=== PATIENT | female | born 1970 | race Caucasian/White ===

== ENCOUNTER → 2017-07-26 | Outpatient (CLI) | payer OTHER ==
[~2017-07-26] MED LIST: BUPR150T5 PO; BUPR75TA5 PO; COUM1TAB17 PO; ELIQ5TAB PO; EXCETAB80 PO; LOVE0.4I2 SC; MAXA10TA15 PO; YASM3TAB2 PO
--- NOTE | 2017-07-26 09:13 | REPMRS ---
Patient History The patient states she has not had a clinical breast exam in over a year. Family history of prostate cancer in father at age 45. Digital Mammo Screening Bilat: July 26, 2017 - Exam #: [id number] Bilateral CC and MLO view(s) were taken. Technologist: Kathya Torres, Technologist Prior study comparison: May 04, 2016, left breast digital mammo diagnostic unilateral performed at [facility]. April 26, 2016, bilateral digital mammo screening bilat performed at [facility]. FINDINGS: The breast tissue is heterogeneously dense. This may lower the sensitivity of mammography. There has been no change in the appearance of the mammogram from the prior studies. There is a moderate amount of residual fibroglandular tissue which is fairly symmetric. There is no interval development of dominant mass, areas of architectural distortion, or clustered microcalcification typical of malignancy. ASSESSMENT: BI-RADS/ACR category 1 mammogram. Negative. Recommendation Routine screening mammogram in 1 year (for women over age 40). This mammogram was interpreted with the aid of an FDA-approved computer-aided dectection system. Electronically Signed By: Valdo Wilcox MD 07/26/17 [id number]
== END ==
LOC: M RAD 07:45
PROVIDERS: ATTEND Internal Medicine
DX: Z12.31 Encounter for screening mammogram for malignant neoplasm of breast (principal); R92.8 Other abnormal and inconclusive findings on diagnostic imaging of breast

== ENCOUNTER 2018-01-08 03:20 | Emergency (ER) | payer OTHER ==
[2018-01-08] MEDS: IPRATROPIUM 0.5MG/ALBUTEROL 2.5MG INH SOL UD 3ML (DUONEB)(J7620) NEB ×3 (03:26→03:27)
[2018-01-08] MEDS: predniSONE 20 MG TAB PO (04:39)
[2018-01-08] MEDS: ALBUTEROL 90 MCG/ACT 8GM HFA INHALER INH (04:39)
== END 2018-01-08 04:43 | disposition home or self-care (01) ==
LOC: M ED 03:20
DX: J20.9 Acute bronchitis, unspecified (principal); Z79.899 Other long term (current) drug therapy
CPT/HCPCS: 71046

== ENCOUNTER → 2018-03-21 | Outpatient (CLI) | payer OTHER ==
[~2018-03-21] MED LIST changes: -BUPR150T5 PO; -BUPR75TA5 PO; -COUM1TAB17 PO; -ELIQ5TAB PO; -EXCETAB80 PO; -LOVE0.4I2 SC; -MAXA10TA15 PO; +METHACHOLINE KIT (J7674) INH; -YASM3TAB2 PO
== END ==
LOC: M CARPUL 14:32
DX: R05 Cough (principal)

== ENCOUNTER → 2018-09-22 | Outpatient (CLI) | payer OTHER ==
[~2018-09-22] MED LIST changes: +BUPR150T5 PO; +BUPR75TA5 PO; +COUM1TAB17 PO; +ELIQ5TAB PO; +EXCETAB80 PO; +IBUP80TA PO; +LOVE0.4I2 SC; +MAXA10TA15 PO; -METHACHOLINE KIT (J7674) INH; +PRED20TA PO; +SING10TA32 PO; +YASM3TAB2 PO
--- NOTE | 2018-09-22 10:00 | REPMRS ---
Patient History The patient states she has not had a clinical breast exam in over a year. Family history of prostate cancer at age 45 in father. 2D ONLY. Digital Mammo Screening Bilat: September 22, 2018 - Exam #: [id number] Bilateral CC and MLO view(s) were taken. Technologist: Ema Manzanares, Technologist Prior study comparison: July 26, 2017, bilateral digital mammo screening bilat performed at [facility]. May 04, 2016, left breast digital mammo diagnostic unilateral performed at [facility]. FINDINGS: The breast tissue is heterogeneously dense. This may lower the sensitivity of mammography. There has been no change in the appearance of the mammogram from the prior studies. There is a moderate amount of residual fibroglandular tissue which is fairly symmetric. There is no interval development of dominant mass, areas of architectural distortion, or clustered microcalcification typical of malignancy. Assessment: BI-RADS/ACR category 1 mammogram. Negative Mammogram. Recommendation Routine screening mammogram in 1 year (for women over age 40). This mammogram was interpreted with the aid of an FDA-approved computer-aided dectection system. Electronically Signed By: Valdo Wilcox MD 09/22/18 1000
== END ==
LOC: M RAD 09:16
PROVIDERS: ATTEND Family Medicine
DX: Z12.31 Encounter for screening mammogram for malignant neoplasm of breast (principal); Z80.42 Family history of malignant neoplasm of prostate

== ENCOUNTER 2018-11-01 16:56 | Emergency (ER) | payer OTHER ==
[~2018-11-01] VITALS: Ht 172.7 cm; Wt 69.4 kg
[2018-11-01] MEDS ORDERED: ADVA115A (17:13)
--- NOTE | 2018-11-01 17:56 | REP ---
Clinical: Bilateral lower extremity swelling . Technique: Wilcox scale and color Doppler evaluation using linear high frequency transducer. Findings: Ultrasound examination of the right and left lower extremity deep venous structures from the common femoral vein to the popliteal vein demonstrates normal compressibility flow and wave patterns in response to respiration and augmentation. There is no evidence for deep venous thrombosis. Impression: No evidence for deep venous thrombosis. Electronically Signed by Rakan Butler MD 11/01/2018 05:47 P
[2018-11-01 19:07] LABS: BASO # 0.1 10^3/uL (0.0-0.2); BASO % 1.3 % (0.0-1.0); EOS # 1.1 10^3/uL (0.0-0.50); EOS % 15.8 % (0.0-3.0); HEMATOCRIT 34.1 % (36.0-47.0); HEMOGLOBIN 11.5 g/dl (12.0-15.5); LYMPH # 2.4 10^3/uL (1.5-4.5); LYMPH % 33.7 % (24.0-44.0); MEAN CORPUSCULAR HGB CONC 33.7 g/dl (32.0-36.5); MONO # 0.5 10^3/uL (0.0-0.8); MONO % 6.9 % (0.0-5.0); NEUTROPHILS % 42.2 % (36.0-66.0); PLATELET COUNT, AUTOMATED 257 10^3/uL (150-450); RED BLOOD COUNT 3.83 10^6/uL (4.00-5.40)
--- NOTE | 2018-11-01 19:24 | REP ---
Clinical: Edema. Technique: PA and lateral. Comparison: 01/08/2018. Findings: Mediastinum and cardiac silhouette are normal. Cephalization and mild pulmonary vascular congestion cannot be excluded. No focal consolidation. No effusion. No pneumothorax. Skeletal structures are intact. Impression: Prominent pulmonary vasculature with mild cephalization suggests pulmonary vascular congestion. Differential diagnosis may include bronchitis. No focal consolidation. Electronically Signed by Rakan Butelr MD 11/01/2018 07:15 P
[2018-11-01 19:35] LABS: ALBUMIN 3.5 GM/DL (3.2-5.2); ALT/SGPT 61 U/L (12-78); APPEARANCE, URINE CLEAR (CLEAR); BACTERIA, URINE AUTO 1+ (NEGATIVE); BILIRUBIN, URINE AUTO NEGATIVE (NEGATIVE); BILIRUBIN,DIRECT 0.1 MG/DL (0.0-0.2); BILIRUBIN,TOTAL 0.5 MG/DL (0.2-1.0); BLOOD UREA NITROGEN 18 MG/DL (7-18); BLOOD, URINE BLOOD 2+ (NEGATIVE); CALCIUM LEVEL 8.7 MG/DL (8.5-10.1); CARBON DIOXIDE LEVEL 23 MEQ/L (21-32); CHLORIDE LEVEL 107 MEQ/L (98-107); COLOR, URINE STRAW (YELLOW); CREATININE FOR GFR 0.72 MG/DL (0.55-1.30); GLOMERULAR FILTRATION RATE > 60.0 (>58); GLUCOSE, FASTING 77 MG/DL (70-100); GLUCOSE, URINE (UA) AUTO NEGATIVE (NEGATIVE); KETONE, URINE AUTO 1+ mg/dL (NEGATIVE); LEUKOCYTE ESTERASE, URINE AUTO 1+ (NEGATIVE); MUCUS, URINE SMALL (NEGATIVE); NITRITE, URINE AUTO NEGATIVE (NEGATIVE); NT-PRO BNP 94 PG/ML (<125); POTASSIUM SERUM 3.7 MEQ/L (3.5-5.1); PROTEIN, URINE AUTO NEGATIVE (NEGATIVE); RBC, URINE AUTO 1 /HPF (0-3); SODIUM LEVEL 139 MEQ/L (136-145); SQUAMOUS EPITHELIAL CELL UR AU 1 /HPF (0-6); TOTAL PROTEIN 6.5 GM/DL (6.4-8.2); UROBILINOGEN, URINE AUTO 0.2 mg/dL (0.0-2.0); WBC, URINE AUTO 1 /HPF (0-3)
[2018-11-01 19:54] VITALS: BP 122/70
--- NOTE | 2018-11-02 10:21 | ECGEPIP ---
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 Order Number: [id number] Reading MD: Tess Guzman Measurements Intervals Gardner Rate: 66 P: 22 UT: 164 QRS: 37 QRSD: 93 T: 16 QT: 408 QTc: 429 Interpretive Statements SINUS RHYTHM POSSIBLE RIGHT VENTRICULAR CONDUCTION DELAY NSTTW ABNORMALITY SIMILAR 02/13/16 Electronically Signed On 11-02-2018 10:21:17 EDT by Tess Guzman
== END 2018-11-01 20:51 | disposition home or self-care (01) ==
LOC: M ED 16:56
DX: R60.0 Localized edema (principal); Z86.718 Personal history of other venous thrombosis and embolism

== ENCOUNTER → 2019-02-21 | Outpatient (CLI) | payer OTHER ==
[~2019-02-21] MED LIST changes: +ADVA115A
[2019-02-21 13:19] LABS: BASO % 0.7 % (0.0-1.0); EOS # 0.1 10^3/uL (0.0-0.50); EOS % 1.6 % (0.0-3.0); HEMATOCRIT 37.6 % (36.0-47.0); HEMOGLOBIN 12.7 g/dl (12.0-15.5); LYMPH # 2.2 10^3/uL (1.5-4.5); LYMPH % 49.4 % (24.0-44.0); MEAN CORPUSCULAR HGB CONC 33.8 g/dl (32.0-36.5); MEAN CORPUSCULAR VOLUME 85.8 fl (80.0-96.0); MONO # 0.3 10^3/uL (0.0-0.8); MONO % 6.7 % (0.0-5.0); NEUTROPHILS # 1.9 10^3/uL (1.8-7.7); NEUTROPHILS % 41.6 % (36.0-66.0); PLATELET COUNT, AUTOMATED 259 10^3/uL (150-450); RED BLOOD COUNT 4.38 10^6/uL (4.00-5.40); WHITE BLOOD COUNT 4.5 10^3/uL (4.0-10.0)
[2019-02-21 14:03] LABS: IMMUNOGLOBULIN A 74.5 MG/DL (70-400); IMMUNOGLOBULIN E 86.4 IU/ML (<100); IMMUNOGLOBULIN G 1020 MG/DL (681-1648)
[2019-02-21 14:36] LABS: RUBELLA IgG QUALITATIVE IMMUNE (IMMUNE)
[2019-03-01 00:06] LABS: ANTI TETANUS ANTIBODY 1.03 IU/mL (<0.10); IMMUNOGLOBULIN D <1.34 mg/dL (<14.11); STREP PNEUMO TYPE 1 0.4 ug/mL (>1.3); STREP PNEUMO TYPE 12F <0.1 ug/mL (>1.3); STREP PNEUMO TYPE 14 4.9 ug/mL (>1.3); STREP PNEUMO TYPE 18C <0.1 ug/mL (>1.3); STREP PNEUMO TYPE 19A 0.2 ug/mL (>1.3); STREP PNEUMO TYPE 19F 0.8 ug/mL (>1.3); STREP PNEUMO TYPE 23F <0.1 ug/mL (>1.3); STREP PNEUMO TYPE 4 <0.1 ug/mL (>1.3); STREP PNEUMO TYPE 6B <0.1 ug/mL (>1.3); STREP PNEUMO TYPE 7F 0.1 ug/mL (>1.3); STREP PNEUMO TYPE 8 <0.1 ug/mL (>1.3); STREP PNEUMO TYPE 9N 0.1 ug/mL (>1.3); STREP PNEUMO TYPE 9V <0.1 ug/mL (>1.3)
== END ==
LOC: M SMT 11:29
PROVIDERS: ATTEND Allergy & Immunology Allergy
DX: J45.30 Mild persistent asthma, uncomplicated (principal); J31.0 Chronic rhinitis; D84.9 Immunodeficiency, unspecified

== ENCOUNTER → 2019-04-12 | Outpatient (CLI) | payer OTHER ==
--- NOTE | 2019-04-12 17:03 | REP ---
Maxillofacial CT study without contrast: History: Chronic pansinusitis. Comparison is made with images from brain CT study December 19, 2015. CT findings: There is an air-fluid level in the left maxillary sinus. Small mucous retention cysts are seen along the anterior wall of the left maxillary sinus. There is mucosal thickening and there are small subcentimeter mucous retention cysts in the right maxillary sinus. There is partial opacification of several ethmoid air cells bilaterally. Minimal mucosal thickening and mucus is visible in the sphenoid sinus air cells bilaterally. There is partial opacification of the left frontal sinus. Mastoid aeration is normal and symmetrical. The bony nasal septum is in the midline. Nasal turbinate soft tissues are normal. The ostiomeatal complexes are patent bilaterally. No intraorbital or intracranial abnormality is appreciated. Impression: Polysinusitis changes as above. Electronically Signed by Ángel Ann MD 04/13/2019 08:40 A
== END ==
LOC: M RAD 16:10
PROVIDERS: ATTEND Otolaryngology
DX: J32.4 Chronic pansinusitis (principal)

== ENCOUNTER 2019-05-28 08:49 | Day surgery (SDC) | payer OTHER ==
[~2019-05-28] VITALS: Ht 170.2 cm; Wt 67.8 kg
[~2019-05-28 08:49] MED LIST changes: +CLIN-30 PO; +LR 1,000 ML IV ONE; +PRED5TA PO
[2019-05-28] MEDS ORDERED: METHYLENE BLUE 0.5% (5MG/ML) 10 ML AMP (PROVAYBLUE)(Q9968 PER 1MG) As Ordered ONE (10:55)
[2019-05-28] MEDS ORDERED: EPINEPHrine 1MG/ML INJ 30ML MD-VIAL As Ordered ONE (10:55)
[2019-05-28] MEDS ORDERED: LIDOCAINE W/EPINEPHRINE 1% 20ML VIAL As Ordered ONE (10:55)
[2019-05-28] MEDS ORDERED: MIDAZOLAM INJ 2 MG/2 ML VIAL (J2250) As Ordered ONE (11:15)
[2019-05-28] MEDS ORDERED: dexameTHASONE 4 MG/ML 1ML VIAL (J1100) As Ordered ONE (11:15)
[2019-05-28] MEDS ORDERED: LIDOCAINE 2% INJ 100 MG/5 ML SDV (FOR ANES.) As Ordered ONE (11:15)
[2019-05-28] MEDS ORDERED: ONDANSETRON 4MG/2ML VIAL (J2405) As Ordered ONE ×2 (11:15→12:59)
[2019-05-28] MEDS ORDERED: PROPOFOL 200 MG/20 ML VIAL As Ordered ONE (11:15)
[2019-05-28] MEDS ORDERED: ROCURONIUM BROMIDE 50 MG/5 ML VIAL As Ordered ONE (11:15)
[2019-05-28] MEDS ORDERED: SUGAMMADEX SODIUM 500 MG/5 ML VIAL (BRIDION) As Ordered ONE (11:15)
[2019-05-28] MEDS ORDERED: fentaNYL 250 MCG/5 ML INJECTION (J3010) As Ordered ONE (11:15)
[2019-05-28] MEDS ORDERED: ONDANSETRON 4MG/2ML VIAL (J2405) IV PRN (13:00)
[2019-05-28] MEDS ORDERED: PERCOCET 5MG/325MG TAB PO PRN (13:00)
[2019-05-28] MEDS ORDERED: LR 1,000 ML IV SCH ×2 (13:00→14:01)
[2019-05-28] MEDS ORDERED: fentaNYL 100 MCG/2 ML INJECTION (J3010) IV PRN (13:00)
[2019-05-28] MEDS ORDERED: METOCLOPRAMIDE INJ 10MG/2ML VIAL (J2765) As Ordered ONE (13:32)
[2019-05-28] MEDS ORDERED: METOCLOPRAMIDE INJ 10MG/2ML VIAL (J2765) IV ONE (14:00)
[2019-05-28] MEDS ORDERED: ACETAMINOPH W/CODEINE #3 TAB UD PO PRN (14:01)
[2019-05-28 17:00] VITALS: BP 121/68
--- NOTE | 2019-05-28 22:32 | RO ---
DATE OF PROCEDURE: 05/28/2019 PREPROCEDURE DIAGNOSIS: Chronic rhinosinusitis. POSTPROCEDURE DIAGNOSIS: Chronic rhinosinusitis. PROCEDURE: Bilateral antrostomies, ethmoidectomies, nasofrontal sinusotomy, and right sphenoidotomy. 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 DESCRIPTION OF PROCEDURE: Under general anesthesia with the patient intubated, the patient was draped in the usual manner. I used the navigation system during the procedure. It was calibrated. I used pledgets of adrenaline 1:1000 infiltrated with lidocaine and epinephrine. I started first on the right side. I removed the lateral portion of the middle turbinate and then the uncinate process. I opened the ethmoid air cells anterior to posterior and then the sphenoid on that side. I opened the nasofrontal area. Tissue was removed. I removed all the septa from inside the sinus. The same procedure was performed on the opposite side, only I never went into the sphenoid sinus. The patient tolerated the procedure well. 30 mL estimated blood loss. I put in a Propel stent on both sides. Patient extubated and transferred to the recovery room in excellent condition.
== END 2019-05-28 17:05 | disposition home or self-care (01) ==
LOC: M SDC 08:49
PROVIDERS: ATTEND Otolaryngology
DX: J32.9 Chronic sinusitis, unspecified (principal); J45.909 Unspecified asthma, uncomplicated; G43.909 Migraine, unspecified, not intractable, without status migrainosus; Z79.51 Long term (current) use of inhaled steroids; Z86.718 Personal history of other venous thrombosis and embolism; Z86.711 Personal history of pulmonary embolism; Z86.59 Personal history of other mental and behavioral disorders
CPT/HCPCS: 31255; 31257; 31276; 88305; C2625; J1100; J2250; J2405; J2765; J3010; Q9968

== ENCOUNTER → 2019-10-09 | Outpatient (REF) | payer OTHER ==
[~2019-10-09] MED LIST changes: -LR 1,000 ML IV ONE
== END ==
LOC: M LAB REF 16:34
PROVIDERS: ATTEND Otolaryngology
DX: J32.4 Chronic pansinusitis (principal); J30.9 Allergic rhinitis, unspecified

== ENCOUNTER → 2019-10-16 | Outpatient (CLI) | payer OTHER ==
--- NOTE | 2019-10-16 17:25 | REPVR ---
PROCEDURE INFORMATION: Exam: CT Maxillofacial Without Contrast, Sinus Exam date and time: 10/16/2019 4:56 PM Age: 49 years old Clinical indication: Sinusitis; Chronic; Additional info: Chronic pansinusitis TECHNIQUE: Imaging protocol: CT Maxillofacial without contrast. Focus on the sinuses. Radiation optimization: All CT scans at this facility use at least one of these dose optimization techniques: automated exposure control; mA and/or kV adjustment per patient size (includes targeted exams where dose is matched to clinical indication); or iterative reconstruction. COMPARISON: CT BRAIN LAB SINUSES 04/12/2019 4:27 PM FINDINGS: Frontal sinuses: Prominent mucosal disease is seen in the left frontal air cell which has progressed in comparison to the prior study. Ethmoid air cells: Many of the ethmoid air cells have been resected. There is minimal mucoperiosteal thickening. Sphenoid sinuses: The right sphenoid air cell has prominent mucoperiosteal thickening which has progressed in comparison the prior study. Maxillary sinuses: There is minimal mucoperiosteal thickening in the left maxillary antrum with interim resolution of the previously noted air-fluid level on the 04/12/2019 CT. There are bilateral antral windows. Orbits: Orbits are normal. Globes are unremarkable. Auditory system: The middle ear cavities and mastoid air cells are clear. Nasal cavity/Septum: The nasal septum is midline. Nasal cavity is patent. Soft tissues: Unremarkable. Bones/joints: Post paranasal sinus surgery. IMPRESSION: There has been progression of mucoperiosteal thickening in the left frontal sinus and right sphenoid air cell in comparison the prior study with interim resolution of the air-fluid level previously seen in the left maxillary antrum. There are now antral windows as well as resection of multiple ethmoid air cells. Electronically signed by: Maylin Varner On 10/16/2019 17:25:39 PM
== END ==
LOC: M RAD 16:47
PROVIDERS: ATTEND Otolaryngology
DX: J32.4 Chronic pansinusitis (principal)

== ENCOUNTER 2019-11-13 11:41 | Inpatient (IN) | payer OTHER ==
[~2019-11-13] VITALS: Ht 172.7 cm; Wt 64.7 kg
[~2019-11-13 11:41] MED LIST changes: -BACT800T5 PO; -CEFD1CAP8 PO; -PROAAER10 INH; -TOBRSUS8 OS
[2019-11-13 12:23] VITALS: BP 111/66
[2019-11-13 13:14] LABS: HEMATOCRIT 39.1 % (36.0-47.0); MEAN CORPUSCULAR HEMOGLOBIN 29.9 pg (27.0-33.0); MEAN CORPUSCULAR HGB CONC 33.2 g/dl (32.0-36.5); MEAN CORPUSCULAR VOLUME 89.9 fl (80.0-96.0); PLATELET COUNT, AUTOMATED 210 10^3/uL (150-450); RED BLOOD COUNT 4.35 10^6/uL (4.00-5.40); WHITE BLOOD COUNT 4.9 10^3/uL (4.0-10.0)
[2019-11-13] MEDS ORDERED: ALBUTEROL 90 MCG/ACT 8GM HFA INHALER INH PRN (13:45)
[2019-11-13] MEDS ORDERED: PROAAER10 INH (13:54)
[2019-11-13] MEDS ORDERED: TOBRSUS8 OS (13:54)
[2019-11-13] MEDS ORDERED: BACT800T5 PO (13:54)
[2019-11-13] MEDS ORDERED: CEFD1CAP8 PO (13:54)
[2019-11-13 13:55] LABS: ALBUMIN 4.1 GM/DL (3.2-5.2); ALT/SGPT 59 U/L (12-78); BILIRUBIN,TOTAL 0.5 MG/DL (0.2-1.0); BLOOD UREA NITROGEN 15 MG/DL (7-18); CALCIUM LEVEL 9.4 MG/DL (8.5-10.1); CARBON DIOXIDE LEVEL 29 MEQ/L (21-32); CHLORIDE LEVEL 111 MEQ/L (98-107); CREATININE FOR GFR 1.04 MG/DL (0.55-1.30); GLOMERULAR FILTRATION RATE > 60.0 (>58); GLUCOSE, FASTING 75 MG/DL (70-100); SODIUM LEVEL 142 MEQ/L (136-145)
[2019-11-13] MEDS: PIPERACILLIN/TAZOBACTAM SOD 3.375 GM in D5W MINI-BAG PLUS 50 ML IV SCH ×2 (14:17→22:01)
[2019-11-13] MEDS: ENOXAPARIN 40 MG/0.4 ML SYRINGE (J1650) SC SCH (14:17)
--- NOTE | 2019-11-13 14:54 | PHACANCOPD ---
PHARMACY VANCOMYCIN DOSING Pt Demographics Demographics Patient Age:49 , Weight:64.700 , Gender: female Adjusted Body Weight Events Past 24 Hours Events Past 24 Hours: YES: Other Vancomycin Vancomycin indication: PERIORBITAL CELLULITIS Vancomycin Target Ranges: 15-20 mcg/ml Vancomycin Load Y/N: Yes Load Dose Date Time Vancomycin Load Dose: 1500MG Date: 11/13/19 Time: 1600 Vancomycin Dose Date: 11/13/19. Current Vancomycin Dose: 1000MG Q12H Intermittent Dosing?: No Labs Creatinine Clearance Date:11/13/19. Creatinine Clearance: 67 Assessment and Plan Maintaining Current Dose?: Yes Reason for dose change: No Dose Change Pharmacist Note Pharmacist Note Date: 11/13/19. Pharmacist note: Patient admitted for periorbital cellulitis. Target trough of 15-20. Patient does not have a history of vancomycin usage here at [facility]. I gave the patient an IV vancomycin load of 1500mg @1600. I then s cheduled a maintenance dosage of 1G q12h to start at 2200. I scheduled a trough for tomorrow at 2100 before the 4th dose. I will continue to monitor this patient and adjust dosage as needed. DEJA DELACRUZ PHARMACY Nov 13, 2019 14:54
[2019-11-13] MEDS ORDERED: VANCOMYCIN HCL 1,000 MG, VIAL MATE ADAPTER 1 EACH in D5W 250 ML IV ONE (16:00)
[2019-11-13] MEDS ORDERED: VANCOMYCIN HCL 500 MG in D5W MINI-BAG PLUS 100 ML IV ONE (17:00)
[2019-11-13] MEDS: ACETAMINOPHEN 500 MG TAB PO PRN (17:07)
--- NOTE | 2019-11-13 17:37 | HPEPDOC ---
General Date of Admission Nov 13, 2019 at 11:50 Date of Service: Nov 13, 2019 Chief Complaint The patient is a 49-year-old female admitted with a reason for visit of Pansinusitis. Source: Patient, RN/MD History of Present Illness 49 year old female with asthma and chronic sinusitis involving the ethmoid, frontal, sphenoidal and maxillary sinuses following with ENT status post surgery ( Ethmoid bullectomy, Uncinectomy) in may 2019 continues to have acute episodes of sinusitis with headache, sinus congestion, swelling around the eyes, discharge from the eyes going on for the past 2 years. Another acute sinusitis episode started 3 weeks ago. She was given 10 days of augmentin by Dr Whatley which she finished about a week ago however she continued t have symptoms so called ENT yesterday and was started o cefdinir and bactrim by Dr Whatley after discussion with ID. She started taking those last night . This am she had a CT sinuses done ad had follow up with DR Whatley and he felt that the CT was much worse than it was a month ago and so recommended admission and ID consultation. Faciomaxillary CT today shows New/progressive findings of moderate mucosal changes in the maxil beka and sphenoid sinuses, and extensive opacification in the ethmoid and frontal sinuses. High attenuation material within the sinuses question fungal sinusitis. Postsurgical changes. Home Medications Scheduled Cefdinir (Cefdinir) 300 Mg Capsule, 300 MG PO BID, (Reported) FOR 15 DAYS, STARTED 11/12/19 Fluticasone Propion/Salmeterol (Advair Hfa 115-21 Mcg Inhaler) 1 Aer Aer, 2 PUFFS INH BID, (Reported) Sulfamethoxazole/Trimethoprim (Bactrim Ds Tablet) 1 Each Tablet, 1 TAB PO BID, (Reported) FOR 10 DAYS STARTED 11/12/19 Tobramycin/Dexamethasone (Tobramycin-Dexameth Ophth Susp) 5 Ml Drops.susp, 1 DROP OS QID, (Reported) Scheduled PRN Albuterol Sulfate (Proair Hfa) 8.5 Gm Hfa.aer.ad, 2 PUFF INH QID PRN for SHORTNESS OF BREATH, (Reported) Allergies Coded Allergies: No Known Allergies (Unverified , 05/28/19) Past Medical History Medical History viral encephalitis in 2016 asthma Chronic sinusitis post nasal drip Surgical History c sections x 2 sinus surgery in may 2019 appendectomy Family History Significant Family History: Cancer (father prostate cancer) Social History * Smoker: non-smoker Alcohol: rarely Drugs: denies A-FIB/CHADSVASC A-FIB History Current/History of A-Fib/PAF?: No Review of Systems Constitutional: Denies: Chills, Fever, Night Sweats Eyes: Reports: Eyelid inflammation (swelling), Other (discharge from eyes) ENT: Reports: Head Aches, Sinus Congestion, Post Nasal Drip Skin: Denies: Rash, Lesions, Breakdown Pulmonary: Denies: Dyspnea, Cough Cardiovascular: Denies: Chest Pain, Palpitations, Orthopnea, Paroxysmal Noc. Dyspnea, Lt Headedness Gastrointestinal: Denies: Nausea, Vomiting, Abdominal Pain, Diarrhea Genitourinary: Denies: Dysuria, Frequency, Incontinence, Retention Hematologic: Denies: Bruising, Bleeding Excessively Musculoskeletal: Denies: Neck Pain, Back Pain, Joint Pain, Muscle Pain, Spasms Neurological: Denies: Weakness, Numbness, Change in speech, Confusion Physical Examination General Exam: Positive: Alert, Cooperative, No Acute Distress Eye Exam: Positive: EOMI, Other Eye Symptoms (left periorbital swelling) ENT Exam: Positive: Atraumatic, Mucous membr. moist/pink, Tongue Midline, Nares Patent Neck Exam: Positive: Supple; Negative: JVD, thyromegaly Chest Exam: Positive: Clear to auscultation, Normal air movement Heart Exam: Positive: Rate Normal, Regular Rhythm, Normal S1, Normal S2; Negative: Murmurs, Rubs Abdomen Exam: Positive: Normal bowel sounds, Soft; Negative: Tenderness, Hepatospenomegaly Extremity Exam: Positive: Normal pulses; Negative: Clubbing, Cyanosis, Edema Skin Exam: Positive: Nl turgor and temperature; Negative: Breakdown, Lesion Vital Signs Vital Signs Date Time Temp Pulse Resp B/P (MAP) Pulse Ox O2 Delivery O2 Flow Rate FiO2 11/13/19 12:23 97.8 66 16 111/66 (81) 100 Room Air Laboratory Data Labs 24H Laboratory Tests 2 11/13/19 12:58: Nucleated Red Blood Cells % (auto) 0.0, Anion Gap 2L, Glomerular Filtration Rate > 60.0, Calcium Level 9.4, Total Bilirubin 0.5, Aspartate Amino Transf (AST/SGOT) 37, Alanine Aminotransferase (ALT/SGPT) 59, Alkaline Phosphatase 14 9H, Total Protein 7.0, Albumin 4.1, Albumin/Globulin Ratio 1.41 CBC/BMP Laboratory Tests 11/13/19 12:58 Assessment/Plan 49 year old female with viral encephlitis in 2016, asthma and acute and chronic sinusitis involving the ethmoid, frontal, sphenoidal sinuses following with ENT status post surgery ( Ethmoid bullectomy, Uncinectomy) in may 2019 continues to have acute episodes of sinusitis with headache, sinus congestion, swelling around the eyes, discharge from the eyes going on for the past 2 years. Another acute sinusitis episode started 3 weeks ago. She was given 10 days of augmentin by Dr Whatley which she finished about a week ago however she continued t have symptoms so called ENT yesterday and was started o cefdinir and bactrim by Dr Whatley after discussion with ID. She started taking those last night . This am she had a CT sinuses done ad had follow up with DR Whatley and he felt that the CT was much worse than it was a month ago and so recommended admission and ID consultation. Acute on chronic sinusitis with Left periorbital cellulitis failed oral antibiotic treatment continue vanco and zosyn ID consult Cultures from nasal secretons and sputum if available. tobradex eye drop. Steroids if needed as per ENT. Asthma continue advair and albuterol prn MDI. ? immunodeficiency Autoimmune panel ordered. Plan / VTE VTE Prophylaxis Ordered?: Yes YOVANA SANCHEZ MD Nov 13, 2019 17:04
[2019-11-13] MEDS ORDERED: diphenhydrAMINE 50MG/ML VIAL (J1200) IV ONE (18:00)
[2019-11-13] MEDS: TOBRADEX OPHTH SUSP 2.5 ML OU SCH ×2 (18:19→23:09)
--- NOTE | 2019-11-13 18:50 | CR ---
DATE OF CONSULTATION: 11/13/2019 INFECTIOUS DISEASE CONSULTATION NOTE HISTORY OF PRESENT ILLNESS: Rebecca is a 49-year-old female who presented to [facility] today as a direct admit from Dr. Whatley for pansinusitis, which is worsening. She states that for about the past 3 years she has had intermittent sinusitis. She reports over that time she has been on multiple courses of antibiotics and steroids without much relief. She also notes that she was diagnosed with asthma over the course of that time and was started on inhaler therapy. She was seen by Dr. Whatley who performed surgery in May of 2019. This has not seemed to improve her symptoms. She was also evaluated by Dr. Paige and allergy testing was negative, according to the patient. She also had immunological workup, which was negative as well. Symptomatically, she experiences pressure over her eyes and across her cheeks, fatigue, and sometimes rhinorrhea. She states that she also sometimes develops a cough productive of clear sputum. She notes that her nasal discharge is also always clear. She states her symptoms tend to come and go and are not typically improved with any treatment she has received. She also notes that she was hospitalized in 2016 for encephalitis, which was of an unknown cause. She was initially admitted to [facility] for this, but was transferred to [facility] in [place]. She states that it was not long after that episode of encephalitis that she began to develop sinus issues. She also notes that she has been having worsening joint pain in her knees and ankles, which is intermittent. This is not always associated with her sinusitis symptoms. She also reports burning on the bottoms of bilateral feet. She also states that when her joints hurt, she sometimes notices swelling in her lower legs and calf tightness bilaterally. She does have a history of a deep vein thrombosis (DVT) and subsequent pulmonary embolism (PE) which developed after her hospitalization in 2016 for encephalitis. She attributes this to being sedentary after hospitalization. She also notes a history of Raynaud's phenomenon in her hands, which she notices when it is cold outside. She states she has recently been referred to a certified social workers in health care in [place], but has not been seen at their office yet. She denies fever, chills, and night sweats. PAST MEDICAL HISTORY: Asthma. PAST SURGICAL HISTORY: Two sections. Appendectomy. Sinus surgery by Dr. Whatley MEDICATIONS: - albuterol sulfate inhaler as needed - Advair HFA two puffs twice a day - Tobradex eye drops ALLERGIES: No known allergies. FAMILY HISTORY: No known family history of chronic sinus problems. SOCIAL HISTORY: She is a , but is currently engaged to a partner of 10 years. She has a daughter. Never smoker. Occasional alcohol use. REVIEW OF SYSTEMS: A 12-point review of systems was negative other than described in history of the present illness. PHYSICAL EXAMINATION: General: Patient is sitting comfortably in bed, in no acute distress. She appears well hydrated and well nourished. HEENT: Normocephalic, atraumatic. Swelling and erythema under the left eye with a stye in the left lower eyelid. Tenderness over the frontal and maxillary sinuses. Throat is clear without exudate or erythema. Clear nasal discharge present. Neck: Supple. No lymphadenopathy. Lungs: Clear to auscultation bilaterally. No wheezing, rhonchi, rales. Heart: Regular rate and rhythm. Normal S1 and S2. No murmurs, rubs, or gallops. Abdomen: Soft, nontender, nondistended. No hepatosplenomegaly or masses noted. Bowel sounds present. Extremities: No edema or clubbing. Pulses 2+ in the radial and dorsalis pedis arteries bilaterally. Hands and feet feel cool to touch. Capillary refill less than 2 seconds. Neurologic: No focal deficits noted. Skin: No rash noted. Psychiatric: Appropriate mood and affect. LABORATORY DATA: White blood cell count 4.9, hemoglobin 13.0, hematocrit 39.1, platelet count 210. Chemistry shows sodium 132, potassium 4.0, chloride 111, carbon dioxide 29, BUN 15, creatinine 1.04, glucose 75. Microbiology: Gram stain from nasal culture obtained in Dr. Whatley's office is pending. We have also added an anaerobic and fungal culture to this swab. IMAGING: Maxillofacial CT obtained by Dr. Whatley shows new/progressive findings moderate mucosal changes in the maxillary and sphenoid sinuses, and extensive opacification in the ethmoid and frontal sinuses. High attenuation material in the sinus, question of fungal sinusitis. Postsurgical changes also noted on CT. Imaging was discussed with Dr. Ann. IMPRESSION/PLAN: 1. Pansinusitis, worsening. This has not responded to multiple rounds of oral antibiotics in the outpatient setting. We will continue with broad-spectrum antibiotics with vancomycin and Zosyn, pending results of nasal culture. We will also obtain sputum cultures and expectorated nasal discharge cultures, including fungal cultures. Methicillin-resistant Staphylococcus aureus (MRSA) screen will be obtained, and if negative, we can deescalate from vancomycin. Considering she has not responded to appropriate outpatient antibiotic treatment over multiple courses, we should also consider noninfectious causes of sinusitis. Considering her joint pains, autoimmune processes are a possibility. We have ordered an ANCA panel, MARTÍNEZ level, THADDEUS, CCP. We have also ordered a CRP and ESR. 2. Periorbital cellulitis versus stye of the left eye. The swelling and erythema under her left eye may be a cellulitis, but may also be related to a stye on her left lower eyelid. Antibiotic coverage as above. Will cover for cellulitis. Thank you for this consult. We will follow along.
[2019-11-13] MEDS: ADVAIR HFA 115/21MCG INHALER INH SCH (19:51)
[2019-11-13 22:00] VITALS: BP 116/75
[2019-11-13] MEDS ORDERED: VANCOMYCIN HCL 1,000 MG, VIAL MATE ADAPTER 1 EACH in D5W 250 ML IV SCH (22:00)
[2019-11-14] MEDS: PIPERACILLIN/TAZOBACTAM SOD 3.375 GM in D5W MINI-BAG PLUS 50 ML IV SCH ×4 (04:02→20:16)
[2019-11-14] MEDS: TOBRADEX OPHTH SUSP 2.5 ML OU SCH ×3 (05:12→18:19)
[2019-11-14 05:43] LABS: EOS # 0.5 10^3/uL (0.0-0.5); EOS % 11.2 % (0.0-3.0); HEMATOCRIT 36.6 % (36.0-47.0); HEMOGLOBIN 12.5 g/dl (12.0-15.5); LYMPH # 1.8 10^3/uL (1.5-5.0); LYMPH % 41.7 % (24.0-44.0); MEAN CORPUSCULAR HEMOGLOBIN 30.4 pg (27.0-33.0); MEAN CORPUSCULAR HGB CONC 34.2 g/dl (32.0-36.5); MEAN CORPUSCULAR VOLUME 89.1 fl (80.0-96.0); MONO # 0.4 10^3/uL (0.0-0.8); MONO % 8.3 % (0.0-5.0); NEUTROPHILS # 1.6 10^3/uL (1.5-8.5); NEUTROPHILS % 37.6 % (36.0-66.0); PLATELET COUNT, AUTOMATED 189 10^3/uL (150-450); RED BLOOD COUNT 4.11 10^6/uL (4.00-5.40); WHITE BLOOD COUNT 4.2 10^3/uL (4.0-10.0)
[2019-11-14 06:00] VITALS: BP 109/59
[2019-11-14 06:01] LABS: ERYTHROCYTE SEDIMENTATION RATE 8 mm/hr (0-20)
[2019-11-14 06:06] LABS: BLOOD UREA NITROGEN 13 MG/DL (7-18); C REACTIVE PROTEIN QUANTITATIV < 0.30 MG/DL (0.00-0.30); CALCIUM LEVEL 8.7 MG/DL (8.5-10.1); CARBON DIOXIDE LEVEL 27 MEQ/L (21-32); CHLORIDE LEVEL 110 MEQ/L (98-107); CREATININE FOR GFR 1.09 MG/DL (0.55-1.30); GLUCOSE, FASTING 81 MG/DL (70-100); SODIUM LEVEL 139 MEQ/L (136-145)
[2019-11-14] MEDS: ACETAMINOPHEN 500 MG TAB PO PRN ×2 (07:45→16:52)
[2019-11-14] MEDS: ADVAIR HFA 115/21MCG INHALER INH SCH ×2 (08:15→19:15)
[2019-11-14] MEDS: ENOXAPARIN 40 MG/0.4 ML SYRINGE (J1650) SC SCH (08:54)
[2019-11-14] MEDS: dexameTHASONE 20MG/5ML VIAL (J1100 PER 1MG) IV SCH (11:27)
--- NOTE | 2019-11-14 12:30 | IPNPDOC ---
Subjective Date Seen The patient was seen on 11/14/19. Subjective Chief Complaint/HPI No new complaints this morning Still has the heaviness of the head and pain in the forehead. No fever or chills Objective Physical Examination General Exam: Positive: Alert, Cooperative, No Acute Distress Eye Exam: Positive: EOMI, Other Eye Symptoms (left periorbital swelling) ENT Exam: Positive: Atraumatic, Mucous membr. moist/pink, Tongue Midline, Nares Patent Neck Exam: Positive: Supple; Negative: JVD, thyromegaly Chest Exam: Positive: Clear to auscultation, Normal air movement Heart Exam: Positive: Rate Normal, Regular Rhythm, Normal S1, Normal S2; Negative: Murmurs, Rubs Abdomen Exam: Positive: Normal bowel sounds, Soft; Negative: Tenderness, Hepatospenomegaly Extremity Exam: Positive: Normal pulses; Negative: Clubbing, Cyanosis, Edema Skin Exam: Positive: Nl turgor and temperature; Negative: Breakdown, Lesion Assessment /Plan Assessment 49 year old female with viral encephalitis in 2016, asthma and acute and chronic sinusitis involving the ethmoid, frontal, sphenoidal sinuses following with ENT status post surgery ( Ethmoid bullectomy, Uncinectomy) in may 2019 continues to have acute episodes of sinusitis with headache, sinus congestion, swelling around the eyes, discharge from the eyes going on for the past 2 years. Another acute sinusitis episode started 3 weeks ago. She was given 10 days of augmentin by Dr Whatley which she finished about a week ago however she continued t have symptoms so called ENT yesterday and was started o cefdinir and bactrim by Dr Whatley after discussion with ID. She started taking those last night . This am she had a CT sinuses done and had follow up with Dr Whatley and he felt that the CT was much worse than it was a month ago and so recommended admission and ID consultation. Acute on chronic sinusitis with Left periorbital cellulitis with left eye stye. failed oral antibiotic treatment Infective Vs noninfective causes. continue zosyn MRSA PCR negative ID consult appreciated Cultures from nasal secretions and sputum if available. tobradex eye drop. Decadron 10 mg daily Asthma continue advair and albuterol prn MDI. ? immunodeficiency Autoimmune panel ordered. immunoglobulin levels are normal in 2019. Plan/VTE VTE Prophylaxis Ordered?: Yes VS, I&O, 24H, Fishbone Vital Signs/I&O Vital Signs Date Time Temp Pulse Resp B/P (MAP) Pulse Ox O2 Delivery O2 Flow Rate FiO2 11/14/19 06:00 98.2 53 16 109/59 (76) 97 Room Air I&O- Last 24 Hours up to 6 AM 11/14/19 06:00 Intake Total 1310 ml Output Total 800 ml Balance 510 ml Laboratory Data 24H LABS Laboratory Tests 2 11/13/19 12:58: Nucleated Red Blood Cells % (auto) 0.0, Anion Gap 2L, Glomerular Filtration Rate > 60.0, Calcium Level 9.4, Total Bilirubin 0.5, Aspartate Amino Transf (AST/SGOT) 37, Alanine Aminotransferase (ALT/SGPT) 59, Alkaline Phosphatase 149H, Total Protein 7.0, Albumin 4.1, Albumin/Globulin Ratio 1.41 11/13/19 18:23: Methicillin-Resist S.aureus DNA PCR NOT DETECTED 11/14/19 05:26: Nucleated Red Blood Cells % (auto) 0.0, Anion Gap 2L, Glomerular Filtration Rate 57.0L, Calcium Level 8.7, Immature Granulocyte % (Auto) 0.2, Neutrophils (%) (Auto) 37.6, Lymphocytes (%) (Auto) 41.7, Monocytes (%) (Auto) 8.3H, Eosinophils (%) (Auto) 11.2H, Basophils (%) (Auto) 1.0, Neutrophils # (Auto) 1.6, Lymphocytes # (Auto) 1.8, Monocytes # (Auto) 0.4, Eosinophils # (Auto) 0.5, Basophils # (Auto) 0.0, Erythrocyte Sedimentation Rate 8, C-Reactive Protein, Quantitative < 0.30 CBC/BMP Laboratory Tests 11/13/19 12:58 11/14/19 05:26 YOVANA SANCHEZ MD Nov 14, 2019 08:10
[2019-11-14 14:00] VITALS: BP 110/60
[2019-11-14 20:36] VITALS: BP 127/61
[2019-11-15] MEDS: TOBRADEX OPHTH SUSP 2.5 ML OU SCH ×5 (00:01→23:15)
[2019-11-15] MEDS: PIPERACILLIN/TAZOBACTAM SOD 3.375 GM in D5W MINI-BAG PLUS 50 ML IV SCH ×4 (03:33→20:24)
[2019-11-15] MEDS ORDERED: diphenhydrAMINE 25MG CAP PO PRN (03:45)
[2019-11-15 06:08] VITALS: BP 121/62
[2019-11-15 06:36] LABS: BASO % 0.1 % (0.0-1.0); EOS % 0.1 % (0.0-3.0); HEMOGLOBIN 12.9 g/dl (12.0-15.5); LYMPH # 1.3 10^3/uL (1.5-5.0); LYMPH % 16.2 % (24.0-44.0); MEAN CORPUSCULAR HEMOGLOBIN 29.7 pg (27.0-33.0); MEAN CORPUSCULAR HGB CONC 33.9 g/dl (32.0-36.5); MEAN CORPUSCULAR VOLUME 87.4 fl (80.0-96.0); MONO # 0.4 10^3/uL (0.0-0.8); MONO % 5.1 % (0.0-5.0); NEUTROPHILS % 77.6 % (36.0-66.0); PLATELET COUNT, AUTOMATED 225 10^3/uL (150-450); RED BLOOD COUNT 4.35 10^6/uL (4.00-5.40); WHITE BLOOD COUNT 7.7 10^3/uL (4.0-10.0)
[2019-11-15 07:07] LABS: CALCIUM LEVEL 9.5 MG/DL (8.5-10.1); CREATININE FOR GFR 1.06 MG/DL (0.55-1.30); GLOMERULAR FILTRATION RATE 58.9 (>58); POTASSIUM SERUM 4.5 MEQ/L (3.5-5.1)
[2019-11-15] MEDS: ADVAIR HFA 115/21MCG INHALER INH SCH ×2 (08:08→20:06)
[2019-11-15] MEDS: ENOXAPARIN 40 MG/0.4 ML SYRINGE (J1650) SC SCH (09:00)
[2019-11-15] MEDS: dexameTHASONE 20MG/5ML VIAL (J1100 PER 1MG) IV SCH (09:00)
[2019-11-15 14:29] VITALS: BP 113/58
--- NOTE | 2019-11-15 18:00 | IPN ---
DATE: 11/15/2019 SUBJECTIVE: Radha states she is feeling improvement today. She has noticed some decreased feeling of heaviness in her face especially below her eyes. She has noticed improvement of the swelling below her left eye. She states it still feels heavy above her eyes. She also notes she had has increased chest congestion. She is coughing up clear sputum. She denies any fevers, chills, night sweats, chest pain, or hemoptysis. She is tolerating the antibiotics. She denies any nausea, vomiting, or diarrhea. OBJECTIVE: PHYSICAL EXAMINATION: VITAL SIGNS: Temperature 96.2, heart rate 62, respiratory rate 16, blood pressure 113/58, oxygen saturation 100% on room air. GENERAL: She is sitting comfortably in a chair, in no acute distress. She appears well-hydrated and well-nourished. HEENT: Normocephalic, atraumatic. There is still mild swelling and erythema in her left lower eyelid. The swelling and erythema extending below her eyelid has improved. Improvement of tenderness over the maxillary sinuses. Remains mildly tender over the frontal sinuses. Throat is clear without exudate or erythema. NECK: Supple. No lymphadenopathy. LUNGS: Rhonchorous upper airway breath sounds present in bilateral lung sifuentes. No wheezing or rales noted. Good air entry bilaterally. HEART: Regular rate and rhythm. Normal S1, S2. No murmurs, rubs, or gallops appreciated. ABDOMEN: Soft, nontender, nondistended. Bowel sounds present. EXTREMITIES: No edema. NEUROLOGIC: Alert and oriented. No focal deficits noted. LABORATORY DATA: White blood cell count 7.7, hemoglobin 12.9, hematocrit 38.0, platelet count 225. Sodium 139, potassium 4.5, chloride 109, carbon dioxide 25, BUN 13, creatinine 1.06, glucose 103. MRSA PCR negative. CRP less than 0.3, ESR 8. MICROBIOLOGY: Nasal gram-stain obtained in outpatient visit was negative for growth. Aerobic and anaerobic cultures outpatient sample fungal smear is pending. Inpatient sputum cultures and nasal cultures are pending. IMPRESSION AND PLAN: 1. Pansinusitis. Continue on Zosyn. Vancomycin has been discontinued with a negative methicillin-resistant Staphylococcus aureus (MRSA) screen. The patient will call the clinic to obtain her history of antibiotics that she has taken for this issue. If there is some class that she has not received, we will consider adding this on in case she is colonized with something resistant to the antibiotics she has been taking. Overall, she does seem to be improving clinically. Antineutrophil cytoplasmic antibodies (ANCA) panel, angiotensin-converting enzyme (MARTÍNEZ) level, antinuclear antibody (THADDEUS) and CCP remain pending. Inflammatory etiology is less likely as she has a normal erythrocyte sedimentation rate (ESR) and C-reactive protein (CRP) level. 2. Periorbital cellulitis, stye left eye. Surrounding erythema has greatly improved, but she does appear to have a stye.
[2019-11-15 22:00] VITALS: BP 112/62
[2019-11-16] MEDS: PIPERACILLIN/TAZOBACTAM SOD 3.375 GM in D5W MINI-BAG PLUS 50 ML IV SCH ×2 (03:30→09:07)
[2019-11-16] MEDS: TOBRADEX OPHTH SUSP 2.5 ML OU SCH (04:46)
[2019-11-16 06:00] VITALS: BP 132/77
[2019-11-16 06:15] LABS: EOS % 0.1 % (0.0-3.0); HEMATOCRIT 37.5 % (36.0-47.0); HEMOGLOBIN 12.4 g/dl (12.0-15.5); LYMPH # 1.9 10^3/uL (1.5-5.0); LYMPH % 23.1 % (24.0-44.0); MEAN CORPUSCULAR HEMOGLOBIN 29.5 pg (27.0-33.0); MEAN CORPUSCULAR HGB CONC 33.1 g/dl (32.0-36.5); MEAN CORPUSCULAR VOLUME 89.3 fl (80.0-96.0); MONO # 0.4 10^3/uL (0.0-0.8); MONO % 5.2 % (0.0-5.0); NEUTROPHILS # 5.9 10^3/uL (1.5-8.5); NEUTROPHILS % 71.2 % (36.0-66.0); PLATELET COUNT, AUTOMATED 235 10^3/uL (150-450); WHITE BLOOD COUNT 8.2 10^3/uL (4.0-10.0)
[2019-11-16 06:40] LABS: BLOOD UREA NITROGEN 17 MG/DL (7-18); CARBON DIOXIDE LEVEL 26 MEQ/L (21-32); CHLORIDE LEVEL 109 MEQ/L (98-107); CREATININE FOR GFR 1.04 MG/DL (0.55-1.30); GLOMERULAR FILTRATION RATE > 60.0 (>58); GLUCOSE, FASTING 94 MG/DL (70-100); POTASSIUM SERUM 4.6 MEQ/L (3.5-5.1); SODIUM LEVEL 141 MEQ/L (136-145)
[2019-11-16] MEDS: ADVAIR HFA 115/21MCG INHALER INH SCH (07:16)
[2019-11-16] MEDS: ENOXAPARIN 40 MG/0.4 ML SYRINGE (J1650) SC SCH (09:00)
[2019-11-16] MEDS: dexameTHASONE 20MG/5ML VIAL (J1100 PER 1MG) IV SCH (09:01)
[2019-11-16] MEDS ORDERED: LEVO750T13 PO (11:27)
[2019-11-16] MEDS ORDERED: PRED20TA PO (11:58)
--- NOTE | 2019-11-16 12:55 | IPN ---
DATE: 11/16/2019 SUBJECTIVE: Radha states she continues to feel more improvement today. She states that the heaviness above her eyes and some tingling in her face persists, but is improved from yesterday. She continues to have a cough today and is bringing up clear sputum. She states the Acapella has helped her clear some of her chest congestion. She has also noticed improvement in the stye on her left lower eyelid. She denies any fevers, chills, night sweats, chest pain, or hemoptysis. She is tolerating the antibiotics. She denies any nausea, vomiting, or diarrhea. OBJECTIVE/PHYSICAL EXAMINATION: VITAL SIGNS: Temperature 97.5, heart rate 64, respiratory rate 17, blood pressure 132/77, oxygen saturation 99% on room air. GENERAL: She is sitting comfortably in the chair, in no acute distress. She appears well-hydrated and well-nourished. HEENT: Normocephalic, atraumatic, there is a small stye in her left lower eyelid. Otherwise, the swelling and erythema is no longer present. There is mild tenderness over her frontal sinuses. Throat is clear without exudate or erythema. NECK: Supple, no lymphadenopathy. LUNGS: Improvement in the rhonchorous upper airway breath sounds. No wheezing or rales noted. Good air entry bilaterally. HEART: Regular rate and rhythm. Normal S1 and S2. No murmurs, rubs, or gallops. ABDOMEN: Soft, nontender, nondistended. Bowel sounds present. EXTREMITIES: No edema. NEUROLOGIC: Alert and oriented. No focal deficits noted. LABORATORY DATA: White blood cell count 8.2, hemoglobin 12.4, hematocrit 37.5, platelet count 235. Sodium 141, potassium 4.6, chloride 109, bicarbonate 26, BUN 17, creatinine 1.04, glucose 94. MARTÍNEZ level, ANCA panel, CCP, and THADDEUS remain pending. MICROBIOLOGY: Her cultures obtained on the inpatient and outpatient setting remain with no growth at this time. IMPRESSION AND PLAN: Pansinusitis. She has had clinical improvement during her stay in the hospital. We have reviewed her outpatient antibiotic regimen over the past few months. She has never been on a fluoroquinolone antibiotic for this. We will discharge her on Levaquin 750 mg daily for 2 weeks, as it is possible that her symptoms are recurrent because she is infected with something resistant to the Augmentin and Bactrim she has been treated with previously. She can be discharged home today with followup in a few weeks.
--- NOTE | 2019-11-16 17:15 | IPNPDOC ---
Subjective Date Seen The patient was seen on 11/15/19. Subjective Chief Complaint/HPI feeling better, says the acapella is working and she is bringing up more stuff. still has heaviness of head but is less, the her swelling has improved. Objective Physical Examination General Exam: Positive: Alert, Cooperative, No Acute Distress Eye Exam: Positive: EOMI, Other Eye Symptoms (left periorbital swelling) ENT Exam: Positive: Atraumatic, Mucous membr. moist/pink, Tongue Midline, Nares Patent Neck Exam: Positive: Supple; Negative: JVD, thyromegaly Chest Exam: Positive: Clear to auscultation, Normal air movement Heart Exam: Positive: Rate Normal, Regular Rhythm, Normal S1, Normal S2; Negative: Murmurs, Rubs Abdomen Exam: Positive: Normal bowel sounds, Soft; Negative: Tenderness, Hepatospenomegaly Extremity Exam: Positive: Normal pulses; Negative: Clubbing, Cyanosis, Edema Skin Exam: Positive: Nl turgor and temperature; Negative: Breakdown, Lesion Assessment /Plan Assessment 49 year old female with viral encephalitis in 2016, asthma and acute and chronic sinusitis involving the ethmoid, frontal, sphenoidal sinuses following with ENT status post surgery ( Ethmoid bullectomy, Uncinectomy) in may 2019 continues to have acute episodes of sinusitis with headache, sinus congestion, swelling around the eyes, discharge from the eyes going on for the past 2 years. Another acute sinusitis episode started 3 weeks ago. She was given 10 days of augmentin by Dr Whatley which she finished about a week ago however she continued t have symptoms so called ENT yesterday and was started o cefdinir and bactrim by Dr Whatley after discussion with ID. She started taking those last night . This am she had a CT sinuses done and had follow up with Dr Whatley and he felt that the CT was much worse than it was a month ago and so recommended admission and ID consultation. Acute on chronic sinusitis failed multiple courses of oral antibiotic treatment Infective Vs noninfective causes. continue zosyn MRSA PCR negative ID consult appreciated Cultures from nasal secretions and sputum if available. Decadron 10 mg daily Left eye stye. tobradex eye drop Periorbital cellulitis ruled out Asthma continue advair and albuterol prn MDI. ? immunodeficiency Autoimmune panel ordered. immunoglobulin levels are normal in 2019. Plan/VTE VTE Prophylaxis Ordered?: Yes VS, I&O, 24H, Fishbone Vital Signs/I&O Vital Signs Date Time Temp Pulse Resp B/P (MAP) Pulse Ox O2 Delivery O2 Flow Rate FiO2 11/15/19 14:29 96.2 62 16 113/58 (76) 100 Room Air I&O- Last 24 Hours up to 6 AM 11/15/19 06:00 Intake Total 1470 ml Output Total 0 ml Balance 1470 ml Laboratory Data 24H LABS Laboratory Tests 2 11/15/19 06:25: Immature Granulocyte % (Auto) 0.9, Neutrophils (%) (Auto) 77.6H, Lymphocytes (%) (Auto) 16.2L, Monocytes (%) (Auto) 5.1H, Eosinophils (%) (Auto) 0.1, Basophils (%) (Auto) 0.1, Neutrophils # (Auto) 6.0, Lymphocytes # (Auto) 1.3L, Monocytes # (Auto) 0.4, Eosinophils # (Auto) 0.0, Basophils # (Auto) 0.0, Nucleated Red Blood Cells % (auto) 0.0, Anion Gap 5L, Glomerular Filtration Rate 58.9, Calcium Level 9.5 CBC/BMP Laboratory Tests 11/15/19 06:25 Microbiology Microbiology 11/14/19 Fungal Smear, Received Pending 11/14/19 Fungal Culture, Received Pending 11/14/19 Eye/Ear/Nose/Throat Culture, Received Pending 11/14/19 Gram Stain - Final, Resulted 11/14/19 Sputum Culture, Resulted Pending 11/13/19 Fungal Smear, Received Pending 11/13/19 Fungal Culture, Received Pending YOVANA SANCHEZ MD Nov 15, 2019 19:12
--- NOTE | 2019-11-16 17:18 | DS.PDOC ---
Discharge Summary General Date of Admission Nov 13, 2019 at 11:50 Date of Discharge 11/16/19 Discharge Summary PROCEDURES PERFORMED DURING STAY: [None]. DISCHARGE DIAGNOSES: Acute on CHronic inusitis Left eye Stye Asthma Ongoing evaluation for autoimmune diseases. COMPLICATIONS/CHIEF COMPLAINT: Pansinusitis. HISTORY OF PRESENT ILLNESS: please evaluate and treat HOSPITAL COURSE: 49 year old female with viral encephalitis in 2016, asthma and acute and chronic sinusitis involving the ethmoid, frontal, sphenoidal sinuses following with ENT status post surgery ( Ethmoid bullectomy, Uncinectomy) in may 2019 continues to have acute episodes of sinusitis with headache, sinus congestion, swelling around the eyes, discharge from the eyes going on for the past 2 years. Another acute sinusitis episode started 3 weeks ago. She was given [address] of augmentin by Dr Whatley which she finished about a week ago however she continued t have symptoms so called ENT yesterday and was started o cefdinir and bactrim by Dr Whatley after discussion with ID. She started taking those last night . This am she had a CT sinuses done and had follow up with Dr Whatley and he felt that the CT was much worse than it was a month ago and so recommended admission and ID consultation. Acute on chronic sinusitis failed multiple courses of oral antibiotic treatment Infective Vs noninfective causes. continue zosyn MRSA PCR negative ID consult appreciated Cultures from nasal secretions and sputum if available. Decadron 10 mg daily Left eye stye. tobradex eye drop Periorbital cellulitis ruled out Asthma continue advair and albuterol prn MDI. ? immunodeficiency Autoimmune panel ordered. immunoglobulin levels are normal in 2019. DISCHARGE MEDICATIONS: Please see below. ALLERGIES: Please see below. PHYSICAL EXAMINATION ON DISCHARGE: VITAL SIGNS: Please see below. General Exam: Positive: Alert, Cooperative, No Acute Distress Eye Exam: Positive: EOMI, Other Eye Symptoms (left periorbital swelling) ENT Exam: Positive: Atraumatic, Mucous membr. moist/pink, Tongue Midline, Nares Patent Neck Exam: Positive: Supple; Negative: JVD, thyromegaly Chest Exam: Positive: Clear to auscultation, Normal air movement Heart Exam: Positive: Rate Normal, Regular Rhythm, Normal S1, Normal S2; Negative: Murmurs, Rubs Abdomen Exam: Positive: Normal bowel sounds, Soft; Negative: Tenderness, Hepatospenomegaly Extremity Exam: Positive: Normal pulses; Negative: Clubbing, Cyanosis, Edema Skin Exam: Positive: Nl turgor and temperature; Negative: Breakdown, Lesion LABORATORY DATA: Please see below. ACTIVITY: [As tolerated]. DIET: as tolerated DISPOSITION: 01 Home, Self-Care. DISCHARGE INSTRUCTIONS: Follow up Dr Whatley in [address] Dutta in 2 weeks DISCHARGE CONDITION: [Stable]. TIME SPENT ON DISCHARGE: 35 minutes. Vital Signs/I&Os Vital Signs Date Time Temp Pulse Resp B/P (MAP) Pulse Ox O2 Delivery O2 Flow Rate FiO2 11/16/19 06:00 97.5 54 17 132/77 (95) 99 Room Air I&O- Last 24 Hours up to 6 AM 11/16/19 06:00 Intake Total 1530 ml Balance 1530 ml Laboratory Data Labs 24H Laboratory Tests 2 11/16/19 05:46: Immature Granulocyte % (Auto) 0.4, Neutrophils (%) (Auto) 71.2H, Lymphocytes (%) (Auto) 23.1L, Monocytes (%) (Auto) 5.2H, Eosinophils (%) (Auto) 0.1, Basophils (%) (Auto) 0.0, Neutrophils # (Auto) 5.9, Lymphocytes # (Auto) 1.9, Monocytes # (Auto) 0.4, Eosinophils # (Auto) 0.0, Basophils # (Auto) 0.0, Nucleated Red Blood Cells % (auto) 0.0, Anion Gap 6L, Glomerular Filtration Rate > 60.0, Calcium Level 9.0 CBC/BMP Laboratory Tests 11/16/19 05:46 Microbiology Microbiology 11/14/19 Fungal Smear, Received Pending 11/14/19 Fungal Culture, Received Pending 11/14/19 Eye/Ear/Nose/Throat Culture - Final, Complete 11/14/19 Gram Stain - Final, Resulted 11/14/19 Sputum Culture, Resulted Pending 11/13/19 Fungal Smear, Received Pending 11/13/19 Fungal Culture, Received Pending Discharge Medications Scheduled Fluticasone Propion/Salmeterol (Advair Hfa 115-21 Mcg Inhaler) 1 Aer Aer, 2 PUF FS INH BID, (Reported) Levofloxacin (Levofloxacin) 750 Mg Tablet, 1 TAB PO DAILY Prednisone (Prednisone) 20 Mg Tablet, 40 MG PO DAILY 2 tabs daily for 2 days Tobramycin/Dexamethasone (Tobramycin-Dexameth Ophth Susp) 5 Ml Drops.susp, 1 DROP OS QID, (Reported) Scheduled PRN Albuterol Sulfate (Proair Hfa) 8.5 Gm Hfa.aer.ad, 2 PUFF INH QID PRN for SHORTNESS OF BREATH, (Reported) Allergies Coded Allergies: vancomycin (Verified Allergy, Intermediate, PATIENT FACE WAS PINK AND FLUSHED TOWARD SCALP LINE, 11/14/19) YOVANA SANCHEZ MD Nov 16, 2019 17:18
[2019-11-17 00:11] LABS: ANGIOTENSIN 1 CONVERTING ENZYM 35 U/L (14-82); ANTINUCLEAR ANTIBODIES DIRECT Negative (Negative); CYCLIC CITRULLINATED PEPTIDE 6 units (0-19)
== END 2019-11-16 12:56 | disposition home or self-care (01) | DRG 153 ==
LOC: M MS5PR 11:50
PROVIDERS: ADMIT Internal Medicine Nephrology; ATTEND Internal Medicine Nephrology
DX: J01.10 Acute frontal sinusitis, unspecified (principal); J01.20 Acute ethmoidal sinusitis, unspecified; J01.30 Acute sphenoidal sinusitis, unspecified; J45.909 Unspecified asthma, uncomplicated; H00.016 Hordeolum externum left eye, unspecified eyelid; Z79.899 Other long term (current) drug therapy; Z88.1 Allergy status to other antibiotic agents; Z86.711 Personal history of pulmonary embolism; Z86.718 Personal history of other venous thrombosis and embolism

== ENCOUNTER → 2019-11-13 | Outpatient (CLI) | payer OTHER ==
[~2019-11-13] MED LIST changes: -ADVA115A; +ADVA115A INH; +BACT800T5 PO; +CEFD1CAP8 PO; +PROAAER10 INH; +TOBRSUS8 OS
--- NOTE | 2019-11-13 10:03 | REP ---
MAXILLOFACIAL CT STUDY WITHOUT CONTRAST: HISTORY: Chronic frontal sinusitis. Comparison study October 16, 2019 and April 12, 2019. The frontal sinuses are extensively opacified with high attenuation material. This is a new finding compared to the prior studies. Similarly, there is extensive opacification in the ethmoid air cells. The patient appears to be status post ethmoid bullectomy in the interval since the original study of April 12, 2019 bilaterally. There is moderate mucosal thickening bilaterally in the sphenoid sinus and there is some high attenuation material in the sphenoid sinuses. There is moderate 3-5 mm mucosal thickening surrounding the maxillary sinuses with some high attenuation contents in the sinuses as well. This is a new finding compared with the most recent study of October 16, 2019. The patient is status post uncinectomy bilaterally. These surgical defects are widely patent but there is extensive mucosal thickening which has developed. The nasal turbinate soft tissues remain unremarkable and symmetric. Bony nasal septum is in the midline. No bony sinus wall destruction is seen. No intraorbital abnormality or deep facial soft tissue abnormality is appreciated. Visualized intracranial structures are unremarkable. IMPRESSION: New/progressive findings of moderate mucosal changes in the maxillary and sphenoid sinuses, and extensive opacification in the ethmoid and frontal sinuses. High attenuation material within the sinuses question fungal sinusitis. Postsurgical changes. Electronically Signed by Ángel Ann MD 11/13/2019 10:40 A
== END ==
LOC: M RAD 08:54
PROVIDERS: ATTEND Otolaryngology
DX: J32.1 Chronic frontal sinusitis (principal)

== ENCOUNTER → 2019-12-13 | Outpatient (CLI) | payer OTHER ==
[~2019-12-13] MED LIST changes: +BACT800T5 PO; +CEFD1CAP8 PO; +LEVO750T13 PO; +PROAAER10 INH; +TOBRSUS8 OS
--- NOTE | 2019-12-13 09:12 | REPMRS ---
Patient History The patient states she has not had a clinical breast exam in over a year. Family history of prostate cancer at age 45 in father. Digital Woman Screen Mammo: December 13, 2019 - Exam #: [id number] Bilateral CC and MLO view(s) were taken. Technologist: Ema Manzanares, Technologist Prior study comparison: September 22, 2018, bilateral digital mammo screening bilat, performed at [facility]. July 26, 2017, bilateral digital mammo screening bilat, performed at [facility]. April 26, 2016, bilateral digital mammo screening bilat, performed at [facility]. FINDINGS: The breast tissue is heterogeneously dense. This may lower the sensitivity of mammography. The Volpara volumetric breast density category is: C. There is a moderate amount of heterogeneously dense fibroglandular tissue which is fairly symmetric. There is no interval development of dominant mass, architectural distortion, or grouped microcalcification typical of malignancy. There has been no change in the appearance of the mammogram from the prior studies. 3-D tomosynthesis shows no additional findings. Assessment: BI-RADS/ACR category 1 mammogram. Negative Mammogram. Recommendation Routine screening mammogram of both breasts in 1 year (for women over age 40). This patient's Lifetime Breast Cancer RIsk is estimated at 9.2 %. This mammogram was interpreted with the aid of an FDA-approved computer-aided dectection system. Electronically Signed By: Acosta Ann MD 12/13/19 0912
== END ==
LOC: M WHC 08:15
PROVIDERS: ATTEND Family Medicine
DX: Z12.31 Encounter for screening mammogram for malignant neoplasm of breast (principal)

== ENCOUNTER → 2019-12-27 | Outpatient (REF) | payer OTHER ==
[2019-12-27 18:17] LABS: BASO % 0.7 % (0.0-1.0); EOS # 0.1 10^3/uL (0.0-0.5); EOS % 1.1 % (0.0-3.0); HEMATOCRIT 38.5 % (36.0-47.0); HEMOGLOBIN 13.2 g/dl (12.0-15.5); LYMPH # 1.8 10^3/uL (1.5-5.0); LYMPH % 40.2 % (24.0-44.0); MEAN CORPUSCULAR HEMOGLOBIN 30.5 pg (27.0-33.0); MEAN CORPUSCULAR HGB CONC 34.3 g/dl (32.0-36.5); MEAN CORPUSCULAR VOLUME 88.9 fl (80.0-96.0); MONO # 0.3 10^3/uL (0.0-0.8); MONO % 6.9 % (0.0-5.0); NEUTROPHILS # 2.3 10^3/uL (1.5-8.5); NEUTROPHILS % 50.9 % (36.0-66.0); PLATELET COUNT, AUTOMATED 227 10^3/uL (150-450); RED BLOOD COUNT 4.33 10^6/uL (4.00-5.40); WHITE BLOOD COUNT 4.5 10^3/uL (4.0-10.0)
[2019-12-27 18:23] LABS: ALBUMIN 4.1 GM/DL (3.2-5.2); ALT/SGPT 46 U/L (12-78); BILIRUBIN,TOTAL 0.7 MG/DL (0.2-1.0); BLOOD UREA NITROGEN 18 MG/DL (7-18); C REACTIVE PROTEIN QUANTITATIV < 0.30 MG/DL (0.00-0.30); CARBON DIOXIDE LEVEL 24 MEQ/L (21-32); CHLORIDE LEVEL 103 MEQ/L (98-107); COMPLEMENT C3 73 MG/DL (90-180); COMPLEMENT C4 17 MG/DL (10-40); CREATININE FOR GFR 0.79 MG/DL (0.55-1.30); GLOMERULAR FILTRATION RATE > 60.0 (>58); GLUCOSE, FASTING 62 MG/DL (70-100); POTASSIUM SERUM 3.8 MEQ/L (3.5-5.1); RHEUMATOID FACTOR QUANT < 10.0 IU/ML (<15.0); SODIUM LEVEL 140 MEQ/L (136-145)
[2019-12-27 18:26] LABS: APPEARANCE, URINE CLEAR (CLEAR); BACTERIA, URINE AUTO NEGATIVE (NEGATIVE); BILIRUBIN, URINE AUTO NEGATIVE (NEGATIVE); BLOOD, URINE BLOOD NEGATIVE (NEGATIVE); COLOR, URINE YELLOW (YELLOW); GLUCOSE, URINE (UA) AUTO NEGATIVE (NEGATIVE); KETONE, URINE AUTO 1+ mg/dL (NEGATIVE); LEUKOCYTE ESTERASE, URINE AUTO NEGATIVE (NEGATIVE); NITRITE, URINE AUTO NEGATIVE (NEGATIVE); PROTEIN, URINE AUTO NEGATIVE (NEGATIVE); RBC, URINE AUTO 0 /HPF (0-3); SPECIFIC GRAVITY URINE AUTO 1.009 (1.002-1.035); SQUAMOUS EPITHELIAL CELL UR AU 0 /HPF (0-6); UROBILINOGEN, URINE AUTO 0.2 mg/dL (0.0-2.0); WBC, URINE AUTO 0 /HPF (0-3)
[2019-12-27 18:33] LABS: CREATININE,RANDOM URINE 51.9 MG/DL; TOTAL PROTEIN,RANDOM URINE 6.7 MG/DL (0.0-12.0)
[2019-12-27 19:14] LABS: ERYTHROCYTE SEDIMENTATION RATE 12 mm/hr (0-20)
[2020-01-01 23:07] LABS: ANA (HEP2) Negative (.); ANGIOTENSIN 1 CONVERTING ENZYM 35 U/L (14-82); CYCLIC CITRULLINATED PEPTIDE 8 units (0-19)
== END ==
LOC: M SFHCRHEU 14:09
PROVIDERS: ATTEND Internal Medicine
DX: M25.50 Pain in unspecified joint (principal); J32.4 Chronic pansinusitis

== ENCOUNTER → 2020-01-23 | Outpatient (CLI) | payer OTHER ==
[~2020-01-23] MED LIST changes: +ISOVUE-370 76% 100ML VIAL As Ordered ONE
--- NOTE | 2020-01-23 14:29 | PFTRPT ---
Height: 68.00 Inches Weight: 130.00 Lbs BSA: 1.70 Diagnosis: J32.4, J45.909 DATE OF STUDY: 01/23/2020 ORDERED BY: Dr. Shaye Boone Spirometry: Pre and post bronchodilator study of excellent technical quality. Forced vital capacity normal. FEV1 borderline in proportion. Obstructive index is, therefore, borderline as well. Flow Volume Loop: Expiratory limb of the flow volume loop suggests some nonspecific limitations. No significant bronchodilator response identified. Lung Volumes: Total lung capacity normal. Residual volume in proportion. Diffusing Capacity: Diffusing capacity normal. Hemoglobin: Hemoglobin acceptable at 13.6. Airway Mechanics: Airway resistance and conductance are normal. IMPRESSION: Borderline but probably normal study. Please correlate clinically. MTDD
--- NOTE | 2020-01-23 16:18 | REP ---
Clinical: Polyarthralgia. Chest pain. Technique: Axial contrast enhanced images from the thoracic inlet to the upper abdomen with coronal and sagittal re-formations using 75 ml Isovue 370 intravenous contrast material. Comparison: 02/13/2016 Findings: The bilateral lung sifuentes are relatively well aerated and clear. Calcified granuloma in the periphery of the right upper lobe is again identified along with 3 mm noncalcified nodule in the periphery of the left lower lobe (image 73) which remains stable. No consolidation, further significant nodule or mass lesion. No pleural effusion. No pneumothorax. Tracheobronchial tree is patent. No adenopathy. Mediastinum demonstrates normal thoracic aorta, pulmonary vasculature, and heart/pericardium. Surrounding musculoskeletal structures are intact. Limited upper abdomen demonstrates normal bilateral adrenal glands. Impression: 1. No acute mediastinal or pleuroparenchymal process. 2. Stable right upper lobe calcified granuloma and 3 mm noncalcified left lower lobe nodule. Electronically Signed by Rakan Butler MD 01/23/2020 04:09 P
== END ==
LOC: M CARPUL 13:47
PROVIDERS: ATTEND Internal Medicine
DX: M25.50 Pain in unspecified joint (principal)

== ENCOUNTER → 2020-09-19 | Outpatient (REF) | payer OTHER ==
[~2020-09-19] MED LIST changes: -ISOVUE-370 76% 100ML VIAL As Ordered ONE
[2020-09-19 17:39] LABS: ALBUMIN 4.1 GM/DL (3.2-5.2); BILIRUBIN,DIRECT 0.2 MG/DL (0.0-0.2); BILIRUBIN,TOTAL 0.5 MG/DL (0.2-1.0); TOTAL PROTEIN 6.8 GM/DL (6.4-8.2)
[2020-09-22 17:06] LABS: ANA (HEP2) Negative (.); ANTI CENTROMERE ANTIBODY <0.2 AI (0.0-0.9); ANTI SCLERODERMA ANTIBODIES <0.2 AI (0.0-0.9)
== END ==
LOC: M SFHCRHEU 15:17
PROVIDERS: ATTEND Internal Medicine
DX: I73.00 Raynaud's syndrome without gangrene (principal); R79.89 Other specified abnormal findings of blood chemistry
CPT/HCPCS: 80076; 86038; 86235; 86255; G0463

== ENCOUNTER → 2021-02-05 | Outpatient (CLI) | payer OTHER ==
--- NOTE | 2021-02-05 16:46 | REP ---
INDICATION: MODERATE PERSISTENT ASTHMA, UNCOMPLICATED COMPARISON: 11/01/2018 TECHNIQUE: PA and lateral. FINDINGS: The mediastinum and cardiac silhouette are normal. The lung sifuentes are clear and without acute consolidation, effusion, or pneumothorax. The skeletal structures are intact and normal. IMPRESSION: No acute cardiopulmonary process. <Electronically signed by Rakan Butler > 02/05/21 [id number]
== END ==
LOC: M RAD 16:18
PROVIDERS: ATTEND Internal Medicine Pulmonary Disease
DX: J45.40 Moderate persistent asthma, uncomplicated (principal)

== ENCOUNTER → 2021-07-08 | Outpatient (CLI) | payer OTHER ==
[~2021-07-08] MED LIST changes: -CEFD1CAP8 PO; +CEFD300C41 PO; +OMEP40CA4 PO; +SILD25TA PO
== END ==
LOC: M WHC 15:29
PROVIDERS: ATTEND Nurse Practitioner Primary Care
DX: Z12.31 Encounter for screening mammogram for malignant neoplasm of breast (principal); Z78.0 Asymptomatic menopausal state

== ENCOUNTER → 2021-07-25 | Outpatient (REF) | payer OTHER | LOC: M LAB REF 17:32 | PROVIDERS: ATTEND Physician Assistant Medical | DX: R05.9 Cough, unspecified (principal); R50.9 Fever, unspecified; R53.83 Other fatigue ==

== ENCOUNTER → 2021-10-20 | Outpatient (REF) | payer OTHER ==
[2021-10-20 13:55] LABS: APPEARANCE, URINE HAZY (CLEAR); BACTERIA, URINE AUTO NEGATIVE (NEGATIVE); BILIRUBIN, URINE AUTO NEGATIVE (NEGATIVE); BLOOD, URINE BLOOD 1+ (NEGATIVE); CALCIUM OXALATE CRYSTALS SMALL; COLOR, URINE YELLOW (YELLOW); GLUCOSE, URINE (UA) AUTO NEGATIVE (NEGATIVE); KETONE, URINE AUTO TRACE mg/dL (NEGATIVE); LEUKOCYTE ESTERASE, URINE AUTO 3+ (NEGATIVE); MUCUS, URINE SMALL (NEGATIVE); NITRITE, URINE AUTO NEGATIVE (NEGATIVE); PROTEIN, URINE AUTO NEGATIVE (NEGATIVE); RBC, URINE AUTO 5 /HPF (0-3); SPECIFIC GRAVITY URINE AUTO 1.009 (1.002-1.035); SQUAMOUS EPITHELIAL CELL UR AU 3 /HPF (0-6); UROBILINOGEN, URINE AUTO 0.2 mg/dL (0.0-2.0); WBC, URINE AUTO 18 /HPF (0-3)
== END ==
LOC: M SMT 13:01
PROVIDERS: ATTEND Nurse Practitioner Women's Health
DX: N13.30 Unspecified hydronephrosis (principal)
CPT/HCPCS: 81001; 87086; G0463

== ENCOUNTER → 2021-10-23 | Outpatient (CLI) | payer OTHER ==
[~2021-10-23] MED LIST changes: +ISOVUE-370 76% 100ML VIAL As Ordered ONE
== END ==
LOC: M RAD 10:59
PROVIDERS: ATTEND Nurse Practitioner Women's Health
DX: N13.30 Unspecified hydronephrosis (principal); R31.29 Other microscopic hematuria
CPT/HCPCS: 74178; Q9967

== ENCOUNTER → 2021-11-12 | Outpatient (CLI) | payer OTHER ==
[~2021-11-12] MED LIST changes: +BUPR-71 PO; -BUPR150T5 PO; -ISOVUE-370 76% 100ML VIAL As Ordered ONE
== END ==
LOC: M RAD 12:59
PROVIDERS: ATTEND Nurse Practitioner Women's Health
DX: R35.0 Frequency of micturition (principal); N13.2 Hydronephrosis with renal and ureteral calculous obstruction

== ENCOUNTER 2021-11-22 16:30 | Emergency (ER) | payer OTHER ==
[~2021-11-22] VITALS: Ht 172.7 cm; Wt 59.1 kg
[~2021-11-22 16:30] MED LIST changes: +TAMS1CAP17
[2021-11-22] MEDS ORDERED: ARNU1INH INH (16:57)
[2021-11-22 17:39] LABS: BASO % 1.4 % (0.0-1.0); EOS # 0.4 10^3/uL (0.0-0.5); EOS % 19.4 % (0.0-3.0); HEMATOCRIT 36.6 % (36.0-47.0); HEMOGLOBIN 12.3 g/dl (12.0-15.5); LYMPH # 0.9 10^3/uL (1.5-5.0); LYMPH % 42.2 % (24.0-44.0); MEAN CORPUSCULAR HEMOGLOBIN 30.2 pg (27.0-33.0); MEAN CORPUSCULAR HGB CONC 33.6 g/dl (32.0-36.5); MEAN CORPUSCULAR VOLUME 89.9 fl (80.0-96.0); MONO # 0.2 10^3/uL (0.0-0.8); MONO % 10.4 % (2.0-8.0); NEUTROPHILS % 26.6 % (36.0-66.0); PLATELET COUNT, AUTOMATED 146 10^3/uL (150-450); RED BLOOD COUNT 4.07 10^6/uL (4.00-5.40); WHITE BLOOD COUNT 2.1 10^3/uL (4.0-10.0)
[2021-11-22 17:57] LABS: INR 0.83; PROTHROMBIN TIME 11.8 SECONDS (12.7-14.5)
[2021-11-22 18:08] LABS: ALBUMIN 3.4 GM/DL (3.2-5.2); ALT/SGPT 65 U/L (12-78); BILIRUBIN,DIRECT 0.1 MG/DL (0.0-0.2); BILIRUBIN,TOTAL 0.4 MG/DL (0.2-1.0); BLOOD UREA NITROGEN 19 MG/DL (7-18); CALCIUM LEVEL 8.6 MG/DL (8.5-10.1); CARBON DIOXIDE LEVEL 24 MEQ/L (21-32); CHLORIDE LEVEL 108 MEQ/L (98-107); CREATININE FOR GFR 0.74 MG/DL (0.55-1.30); GLOMERULAR FILTRATION RATE > 60.0 (>51); GLUCOSE, FASTING 80 MG/DL (70-100); LIPASE 248 U/L (73-393); POTASSIUM SERUM 4.1 MEQ/L (3.5-5.1); SODIUM LEVEL 140 MEQ/L (136-145); TOTAL PROTEIN 6.2 GM/DL (6.4-8.2)
[2021-11-22 18:09] LABS: CK-MB VALUE MASS < 1.0 NG/ML (<3.6); CPK CREATINE PHOSPHOKINASE 72 U/L (26-192); MB/CK RELATIVE INDEX 1.39 (< OR =4)
[2021-11-22 18:12] LABS: RSV AMPLIFICATION NEGATIVE (NEGATIVE)
[2021-11-22 18:22] LABS: NEUTROPHILS # 0.6 10^3/uL (1.5-8.5)
[2021-11-22] MEDS ORDERED: KETOROLAC 30 MG/ML 1ML VIAL IV ONE (18:30)
[2021-11-22] MEDS ORDERED: ISOVUE-370 76% 100ML VIAL As Ordered ONE (19:04)
[2021-11-22 19:45] VITALS: BP 124/71
== END 2021-11-22 20:32 | disposition home or self-care (01) ==
LOC: M ED 16:30
DX: U07.1 COVID-19 (principal); R07.9 Chest pain, unspecified; J45.909 Unspecified asthma, uncomplicated; Z88.1 Allergy status to other antibiotic agents; Z79.51 Long term (current) use of inhaled steroids; Z79.899 Other long term (current) drug therapy
CPT/HCPCS: 71045; 71275; 80048; 80076; 82550; 82553; 83690; 84484; 84702; 85025; 85610; 87631; 93005; 93041; 94760; 96374; 99285; J1885; Q9967

== ENCOUNTER → 2021-12-03 | Outpatient (CLI) | payer OTHER ==
[~2021-12-03] MED LIST changes: +ARNU1INH INH
== END ==
LOC: M PLAIMG 07:42
PROVIDERS: ATTEND Nurse Practitioner Women's Health
DX: N13.2 Hydronephrosis with renal and ureteral calculous obstruction (principal)

== ENCOUNTER → 2021-12-24 | Outpatient (CLI) | payer OTHER ==
[~2021-12-24] MED LIST changes: +LIDOCAINE 1% MDV 20ML VIAL As Ordered ONE
[2021-12-24 12:57] LABS: BASO % 0.7 % (0.0-1.0); EOS # 0.1 10^3/uL (0.0-0.5); EOS % 2.4 % (0.0-3.0); HEMOGLOBIN 12.2 g/dl (12.0-15.5); LYMPH # 1.5 10^3/uL (1.5-5.0); LYMPH % 51.2 % (24.0-44.0); MEAN CORPUSCULAR HEMOGLOBIN 30.3 pg (27.0-33.0); MEAN CORPUSCULAR HGB CONC 33.9 g/dl (32.0-36.5); MEAN CORPUSCULAR VOLUME 89.3 fl (80.0-96.0); MONO # 0.3 10^3/uL (0.0-0.8); MONO % 9.4 % (2.0-8.0); NEUTROPHILS % 36.3 % (36.0-66.0); PLATELET COUNT, AUTOMATED 148 10^3/uL (150-450); RED BLOOD COUNT 4.03 10^6/uL (4.00-5.40); WHITE BLOOD COUNT 2.9 10^3/uL (4.0-10.0)
[2021-12-24 13:03] VITALS: BP 107/67
== END ==
LOC: M IRPRO 12:11
PROVIDERS: ATTEND Internal Medicine Hematology & Oncology
DX: D72.819 Decreased white blood cell count, unspecified (principal); D69.6 Thrombocytopenia, unspecified

== ENCOUNTER → 2022-07-19 | Outpatient (CLI) | payer OTHER ==
[~2022-07-19] MED LIST changes: +AMOX875T2; +DULO1CAP4; +LEVO1TAB40 PO; -LEVO750T13 PO; -LIDOCAINE 1% MDV 20ML VIAL As Ordered ONE; +PRED10TA2; +SYNT75TA PO
== END ==
LOC: M WHC 15:54
PROVIDERS: ATTEND Family Medicine
DX: Z12.31 Encounter for screening mammogram for malignant neoplasm of breast (principal); Z53.9 Procedure and treatment not carried out, unspecified reason

== ENCOUNTER → 2022-07-29 | Outpatient (CLI) | payer OTHER | LOC: M WHC 07:37 | PROVIDERS: ATTEND Family Medicine | DX: N64.4 Mastodynia (principal) | CPT/HCPCS: 77066; G0279 ==

== ENCOUNTER → 2023-08-24 | Outpatient (CLI) | payer OTHER ==
[~2023-08-24] MED LIST changes: +CEFD1CAP9 PO; -CEFD300C41 PO; -MAXA10TA15 PO; +MONT-5 PO; +RIZA10TA66 PO; -SING10TA32 PO
== END ==
LOC: M RAD 14:35
PROVIDERS: ATTEND Internal Medicine Pulmonary Disease
DX: R06.02 Shortness of breath (principal); R91.8 Other nonspecific abnormal finding of lung field

== ENCOUNTER → 2023-09-28 | Outpatient (CLI) | payer OTHER | LOC: M WHC 16:02 | PROVIDERS: ATTEND Family Medicine | DX: Z12.31 Encounter for screening mammogram for malignant neoplasm of breast (principal) ==

== ENCOUNTER → 2024-01-24 | Outpatient (CLI) | payer OTHER | LOC: M RAD 07:36 | PROVIDERS: ATTEND Nurse Practitioner Family | DX: R79.9 Abnormal finding of blood chemistry, unspecified (principal) ==

== ENCOUNTER → 2024-05-15 | Outpatient (CLI) | payer OTHER | LOC: M RAD 17:22 | PROVIDERS: ATTEND Internal Medicine Allergy & Immunology | DX: J32.9 Chronic sinusitis, unspecified (principal); J33.9 Nasal polyp, unspecified ==

== ENCOUNTER 2024-07-19 16:18 | Inpatient (IN) | payer OTHER ==
[~2024-07-19] VITALS: Ht 172.7 cm; Wt 76.8 kg
[2024-07-19] MEDS ORDERED: LAMO25TA4 PO (16:25)
[2024-07-19] MEDS ORDERED: TEZE210P PO (16:25)
[2024-07-19] MEDS ORDERED: HYDR-3363 PO (16:25)
[2024-07-19 17:01] LABS: BASO % 0.3 % (0.0-1.0); HEMATOCRIT 39.6 % (36.0-47.0); HEMOGLOBIN 13.3 g/dl (12.0-15.5); LYMPH # 0.4 10^3/uL (1.5-5.0); LYMPH % 6.1 % (24.0-44.0); MEAN CORPUSCULAR HGB CONC 33.6 g/dl (32.0-36.5); MEAN CORPUSCULAR VOLUME 89.2 fl (80.0-96.0); MONO # 0.1 10^3/uL (0.0-0.8); MONO % 1.7 % (2.0-8.0); NEUTROPHILS # 5.5 10^3/uL (1.5-8.5); NEUTROPHILS % 91.4 % (36.0-66.0); PLATELET COUNT, AUTOMATED 172 10^3/uL (150-450); RED BLOOD COUNT 4.44 10^6/uL (4.00-5.40); WHITE BLOOD COUNT 6.1 10^3/uL (4.0-10.0)
[2024-07-19 17:15] LABS: HCG, SERUM QUALITATIVE NEGATIVE (NEGATIVE)
[2024-07-19 17:17] LABS: CPK CREATINE PHOSPHOKINASE 78 U/L (34-145)
[2024-07-19 17:18] LABS: ALBUMIN 4.4 G/DL (3.2-5.2); ALKALINE PHOSPHATASE 90 U/L (35-104); ALT/SGPT 21 U/L (7.0-40); AST/SGOT 23 U/L (<34); BILIRUBIN,DIRECT 0.2 MG/DL (<0.4); BILIRUBIN,TOTAL 0.8 MG/DL (0.3-1.2); BLOOD UREA NITROGEN 19 MG/DL (9-23); CALCIUM LEVEL 10.2 MG/DL (8.5-10.1); CARBON DIOXIDE LEVEL 23 MMOL/L (20-31); CHLORIDE LEVEL 102 MMOL/L (98-107); CK-MB VALUE MASS < 1.0 NG/ML (<3.6); CREATININE FOR GFR 0.88 MG/DL (0.55-1.30); GLOMERULAR FILTRATION RATE > 60.0 (>51); GLUCOSE, FASTING 94 MG/DL (60-100); MB/CK RELATIVE INDEX 1.28 (< OR =4); POTASSIUM SERUM 3.8 MMOL/L (3.5-5.1); SODIUM LEVEL 137 MMOL/L (136-145); TOTAL PROTEIN 7.5 G/DL (5.7-8.2)
[2024-07-19 17:19] LABS: FREE T4 1.38 NG/DL (0.89-1.76); THYROID STIMULATING HORMONE 2.034 uIU/ML (0.55-4.78)
[2024-07-19] MEDS ORDERED: ISOVUE-370 76% 100ML VIAL As Ordered ONE (18:21)
[2024-07-19 18:38] LABS: CK-MB VALUE MASS < 1.0 NG/ML (<3.6)
[2024-07-19 18:39] LABS: LIPASE 63 U/L (12-53)
[2024-07-19 18:40] LABS: CPK CREATINE PHOSPHOKINASE 68 U/L (34-145); MB/CK RELATIVE INDEX 1.47 (< OR =4)
[2024-07-19 18:45] LABS: KETONE, URINE AUTO RFX 2+ mg/dL (NEGATIVE)
[2024-07-19 18:46] LABS: LEUKOCYTE ESTERASE UR AUTO RFX 3+ (NEGATIVE)
[2024-07-19] MEDS: METOCLOPRAMIDE INJ 10MG/2ML VIAL IV ONE (18:50)
[2024-07-19] MEDS: ACETAMINOPHEN 325 MG TAB PO ONE (18:51)
[2024-07-19] MEDS: NS 500 ML IV ONE (18:51)
[2024-07-19] MEDS: cefTRIAXone SOD 2 GM in DEXTROSE 5% (D5W) ADV/MINI-BAG 50 ML IV ONE (19:27)
[2024-07-19] MEDS ORDERED: HOME MED LIST COMPLETE! XX SCH (19:40)
[2024-07-19] MEDS: NS (Normal Saline) 0.9% 1,000 ML IV SCH (21:05)
[2024-07-19] MEDS: IBUPROFEN 600MG TAB PO ONE (21:05)
[2024-07-19 21:23] LABS: PROCALCITONIN <0.04 ng/ml
[2024-07-19] MEDS ORDERED: IPRATROPIUM 0.5MG/ALBUTEROL 2.5MG INH SOL UD 3ML (DUONEB) NEB PRN (21:40)
[2024-07-19 22:02] VITALS: BP 91/50; TEMP 98.2; O2SAT 98
[2024-07-19] MEDS: dexAMETHasone 20MG/5ML VIAL IV SCH (22:36)
[2024-07-19] MEDS: DOXYCYCLINE HYCLATE 100MG TABLET PO SCH (22:36)
[2024-07-19 23:58] VITALS: BP 95/50; TEMP 97.3; O2SAT 97
[2024-07-19] MEDS: NS IV SCH (23:58)
[2024-07-19] MEDS: SODIUM CHLORIDE NASAL 0.65% SPRAY BTL (OCEAN) SCH (23:58)
[2024-07-19] MEDS: ACYCLOVIR IV SCH (23:58)
[2024-07-20] VITALS (9 sets, daily range): BP systolic 88–117; BP diastolic 52–60; TEMP 97.2–98.3; O2SAT 96–100
[2024-07-20 05:47] LABS: HEMATOCRIT 35.5 % (36.0-47.0); HEMOGLOBIN 11.6 g/dl (12.0-15.5); MEAN CORPUSCULAR HEMOGLOBIN 29.2 pg (27.0-33.0); MEAN CORPUSCULAR HGB CONC 32.7 g/dl (32.0-36.5); MEAN CORPUSCULAR VOLUME 89.4 fl (80.0-96.0); PLATELET COUNT, AUTOMATED 162 10^3/uL (150-450); RED BLOOD COUNT 3.97 10^6/uL (4.00-5.40); WHITE BLOOD COUNT 10.3 10^3/uL (4.0-10.0)
[2024-07-20 06:20] LABS: ALBUMIN 3.3 G/DL (3.2-5.2); ALKALINE PHOSPHATASE 70 U/L (35-104); ALT/SGPT 18 U/L (7.0-40); AST/SGOT 14 U/L (<34); BILIRUBIN,TOTAL 0.7 MG/DL (0.3-1.2); BLOOD UREA NITROGEN 16 MG/DL (9-23); CARBON DIOXIDE LEVEL 24 MMOL/L (20-31); CHLORIDE LEVEL 108 MMOL/L (98-107); CREATININE FOR GFR 0.75 MG/DL (0.55-1.30); GLOMERULAR FILTRATION RATE > 60.0 (>51); GLUCOSE, FASTING 128 MG/DL (60-100); SODIUM LEVEL 141 MMOL/L (136-145); TOTAL PROTEIN 5.8 G/DL (5.7-8.2)
[2024-07-20] MEDS: ACETAMINOPHEN 325 MG TAB PO PRN (07:57)
[2024-07-20] MEDS: cefTRIAXone SOD 2 GM in DEXTROSE 5% (D5W) ADV/MINI-BAG 50 ML IV SCH (07:57)
[2024-07-20 08:09] LABS: BASO % 0.2 % (0.0-1.0); LYMPH # 0.5 10^3/uL (1.5-5.0); MONO # 0.2 10^3/uL (0.0-0.8); MONO % 1.4 % (2.0-8.0); NEUTROPHILS # 10.7 10^3/uL (1.5-8.5)
[2024-07-20] MEDS: lamoTRIgine 25MG TAB PO SCH (08:31)
[2024-07-20 08:35] LABS: MAGNESIUM LEVEL 1.9 MG/DL (1.8-2.4)
[2024-07-20 08:37] LABS: C REACTIVE PROTEIN QUANTITATIV 7.87 MG/DL (<1.0)
[2024-07-20] MEDS ORDERED: ENOXAPARIN 40MG/0.4ML SYRINGE (J1650 PER 10MG) SC SCH (09:00)
[2024-07-20] MEDS: AMPICILLIN SOD 2 GM in DEXTROSE 5% (D5W) MINI-BAG PLU 100 ML IV SCH (10:23)
[2024-07-20] MEDS: NS (Normal Saline) 0.9% 1,000 ML IV SCH (10:24)
[2024-07-20 14:24] LABS: APPEARANCE, CSF CLEAR (CLEAR); COLOR, CSF COLORLESS (COLORLESS); CSF TUBE# CELL CNT TUBE 4
[2024-07-20 14:30] LABS: APPEARANCE, CSF CLEAR (CLEAR); COLOR, CSF COLORLESS (COLORLESS); CSF TUBE# CELL CNT TUBE 1
[2024-07-20 14:46] LABS: CSF TUBE# TP TUBE 2; TOTAL PROTEIN,CSF 51.4 MG/DL (15-45)
[2024-07-20 14:49] LABS: CSF TUBE# GLU TUBE 2
[2024-07-20] MEDS: LEVOTHYROXINE 75MCG TABLET (0.075MG) PO SCH (21:12)
[2024-07-21 03:14] VITALS: BP 96/52; TEMP 97.6; O2SAT 98
[2024-07-21 06:48] LABS: BASO % 0.1 % (0.0-1.0); HEMOGLOBIN 10.8 g/dl (12.0-15.5); LYMPH # 0.6 10^3/uL (1.5-5.0); LYMPH % 6.4 % (24.0-44.0); MEAN CORPUSCULAR HEMOGLOBIN 29.3 pg (27.0-33.0); MEAN CORPUSCULAR HGB CONC 32.7 g/dl (32.0-36.5); MEAN CORPUSCULAR VOLUME 89.7 fl (80.0-96.0); MONO # 0.3 10^3/uL (0.0-0.8); MONO % 3.1 % (2.0-8.0); NEUTROPHILS # 8.4 10^3/uL (1.5-8.5); NEUTROPHILS % 88.9 % (36.0-66.0); PLATELET COUNT, AUTOMATED 149 10^3/uL (150-450); RED BLOOD COUNT 3.68 10^6/uL (4.00-5.40); WHITE BLOOD COUNT 9.4 10^3/uL (4.0-10.0)
[2024-07-21 07:17] LABS: C REACTIVE PROTEIN QUANTITATIV 6.33 MG/DL (<1.0)
[2024-07-21 07:20] LABS: ALKALINE PHOSPHATASE 58 U/L (35-104); ALT/SGPT 16 U/L (7.0-40); AST/SGOT 15 U/L (<34); BILIRUBIN,TOTAL 0.4 MG/DL (0.3-1.2); BLOOD UREA NITROGEN 15 MG/DL (9-23); CALCIUM LEVEL 8.7 MG/DL (8.5-10.1); CARBON DIOXIDE LEVEL 21 MMOL/L (20-31); CHLORIDE LEVEL 112 MMOL/L (98-107); CREATININE FOR GFR 0.71 MG/DL (0.55-1.30); GLOMERULAR FILTRATION RATE > 60.0 (>51); GLUCOSE, FASTING 139 MG/DL (60-100); POTASSIUM SERUM 4.1 MMOL/L (3.5-5.1); SODIUM LEVEL 144 MMOL/L (136-145); TOTAL PROTEIN 5.4 G/DL (5.7-8.2)
[2024-07-21 07:37] VITALS: BP 101/62; TEMP 98.8; O2SAT 99
[2024-07-21 11:48] VITALS: BP 102/54; TEMP 98.8; O2SAT 98
[2024-07-21] MEDS ORDERED: AZIT500T5 PO (12:22)
[2024-07-21] MEDS ORDERED: AUGM500T34 PO (12:22)
== END 2024-07-21 14:05 | disposition home or self-care (01) | DRG 195 ==
LOC: M ED 16:18 → M ED INP 20:35 → M PCU 22:00
PROVIDERS: ADMIT Student in an Organized Health Care Education/Training Program; ATTEND Student in an Organized Health Care Education/Training Program
PROC: 009U3ZX Drainage of Spinal Canal, Percutaneous Approach, Diagnostic (ICD-10-PCS; principal; 2024-07-20 13:00)
DX: J18.9 Pneumonia, unspecified organism (principal); J45.909 Unspecified asthma, uncomplicated; J32.4 Chronic pansinusitis; G43.909 Migraine, unspecified, not intractable, without status migrainosus; E03.9 Hypothyroidism, unspecified; K44.9 Diaphragmatic hernia without obstruction or gangrene; I73.00 Raynaud's syndrome without gangrene; K21.9 Gastro-esophageal reflux disease without esophagitis; Z79.890 Hormone replacement therapy; Z79.899 Other long term (current) drug therapy; Z88.0 Allergy status to penicillin; R20.2 Paresthesia of skin; Z11.52 Encounter for screening for COVID-19

== ENCOUNTER → 2024-08-28 | Outpatient (REF) | payer OTHER ==
[~2024-08-28] MED LIST changes: +AUGM500T34 PO; +AZIT500T5 PO; +BUPR75TA5; +HYDR-3363 PO; +LAMO25TA4 PO; +MEPO100A; +NALT50TA4; +TEZE210P PO
[2024-09-03 19:12] LABS: ASPERGILLUS FLAVUS ABY Negative (Negative); ASPERGILLUS FUMIGATUS ABY Negative (Negative); ASPERGILLUS NIGER ABY Negative (Negative)
== END ==
LOC: M LAB REF 16:08
PROVIDERS: ATTEND Internal Medicine Pulmonary Disease
DX: J45.40 Moderate persistent asthma, uncomplicated (principal)

== ENCOUNTER → 2024-10-25 | Outpatient (CLI) | payer OTHER | LOC: M PLAIMG 14:15 | PROVIDERS: ATTEND Internal Medicine Pulmonary Disease | DX: R91.8 Other nonspecific abnormal finding of lung field (principal); J98.11 Atelectasis; L92.9 Granulomatous disorder of the skin and subcutaneous tissue, unspecified ==